=== PATIENT | male | born 1970 | race Asian ===

== ENCOUNTER 2024-03-28 13:47 | Observation (INO) | payer OTHER, SELFPAY ==
[2024-03-28] VITALS (44 sets, daily range): BP systolic 83–102; BP diastolic 51–68; PULSE 52–70; RESP 11–28; TEMP 36.9; O2SAT 84–100
--- NOTE | ~2024-03-28 | XR_ITS ---
EXAMINATION: XR chest 1V DATE: 03/28/2024 15:26 INDICATION: Hypoxia TECHNIQUE: frontal view of the chest was obtained. COMPARISON: None FINDINGS: Large-bore dual-lumen left internal jugular central venous catheter with distal tip in the right atri um. Small lung volumes. There are airspace opacities in the bilateral mid and lower lung zones. Small right and possible small left pleural effusions. No pneumothorax. Cardiomegaly. IMPRESSION: 1. Opacities in the bilateral mid and lower lung zones which could represent atelectasis, pneumonia, mild pulmonary edema or some combination thereof. 2. Small right pleural effusion and possible small left pleural effusion. 3. Cardiomegaly. Reviewed, dictated and finalized at location A. CH SALES MANAGER IMPRESSION: 1. Opacities in the bilateral mid and lower lung zones which could represent at electasis, pneumonia, mild pulmonary edema or some combination thereof. 2. Small right pleural effusion and possible small left pleural effusion. 3. Cardiomegaly.
--- NOTE | ~2024-03-28 | CT_ITS ---
CLINICAL INDICATION: Weakness and sepsis COMPARISON: None. TECHNIQUE: Multiple contiguous axial images of the chest, abdomen and pelvis were performed without t he administration of intravenous contrast The dose-length product (DLP) was 695.60 mGy-cm. Automated exposure control and iterative reconstruction technique were employed. FINDINGS/OBSERVATIONS: Chest: Bilateral pleural effusions (right greater than left) with adjacent compressive consolidation. The heart is enlarged. Tunneled left internal jugular hemodialysis catheter tip in the proximal right atrium. Liver: The liver demonstrates homogeneous attenuation and is markedly enlarged measuring 22 cm in longitudin al dimension. Gallbladder and biliary system: The gallbladder butt are densely calcified. Pancreas: Limited evaluation of the pancreas secondary to the lack of intravenous contrast. Spleen: The spleen demonstrates homogeneous attenuation and is not enlarged measuring 10 cm in longitudinal d imension. Kidneys: The bilateral kidneys are unremarkable, without hydronephrosis or renal calculi. Adrenal glands: Unremarkable. Gastrointestinal tract: Percutaneous gastrostomy within the stomach. Appendix: The appendix is not visualized. Vasculature: Densely calcified atherosclerotic disease, far advanced for patient of this age. Lymph nodes: Limited evaluation without intravenous contrast. Pelvic structures: The bladder is decompressed with significant wall thickening. The prostate gland is not enlarged. Body wall and musculoskeletal: [place] spine is identified, findings consistent with hyperparathyroidism. No acute compression fracture is present. Moderate anasarca and intra-abdominal ascites. IMPRESSION: Densely calcified atherosclerotic disease, far advanced for patient of this age. Findings within the spine suggesting hyperparathyroidism. Large bilateral pleural effusions (right greater than left) with adjacent consolidation. Dense wall calcification of the gallbladder. Moderate anasarca and intra-abdominal ascites Reviewed, dictated and finalized at location A. ARY OPERATOR IMPRESSION: Densely calcified atherosclerotic disease, far advanced for patient of this age . Findings within the spine suggesting hyperparathyroidism. Large bilateral pleural effusions (right greater than left) with adjacent conso lidation. Dense wall calcification of the gallbladder. Moderate anasarca and intra-abdominal ascites
[2024-03-28 15:09] LABS: Influenza A QL RT-PCR Negative (Negative); Influenza B QL RT-PCR Negative (Negative); RSV RNA, RT-PCR Negative (Negative); SARS-CoV-2 RNA PCR Negative (Negative)
[2024-03-28 15:21] LABS: Hematocrit 25.8 % (42.0-52.0); Hemoglobin 7.7 g/dL (14.0-18.0); Mean Corpuscular HGB Conc 29.8 g/dl (32-36); Mean Corpuscular Hemoglobin 33.6 pg (26-34); Mean Corpuscular Volume 112.7 fl (80-100); Mean Platelet Volume 12.4 fl (7.4-10.4); Platelet Count Result 33 k/mm3 (150-375); Red Blood Count 2.29 M/mm3 (4.6-6.20); Red Cell Distribution Width 17.7 % (11.5-14.5)
[2024-03-28 15:38] LABS: Alanine Aminotransferase 10 U/L (6-50); Albumin Level 2.5 g/dL (3.5-5.1); Alkaline Phosphatase 91 U/L (38-126); Anion Gap 8 mmol/L (4-12); Aspartate Amino Transferase 48 U/L (17-59); Blood Urea Nitrogen 36 mg/dL (9-20); Calcium 6.7 mg/dL (8.4-10.2); Carbon Dioxide 32 mmol/L (22-30); Chloride 99 mmol/L (98-107); Estimated Glomerular Filt Rate 10; Glucose 85 mg/dL (65-110); Potassium 2.7 mmol/L (3.4-5.0); Sodium 139 mmol/L (137-145)
[2024-03-28 15:45] LABS: Band Neutrophils Percent 14 % (0-6); Hypochromasia 3+; Lymphocytes Absolute Manual 2.28 K/mm3 (1.1-4.5); Lymphocytes Percent Manual 12 % (18-44); Monocytes Absolute Manual 0.38 K/mm3 (0.1-0.90); Monocytes Percent Manual 2 % (3-9); Myelocytes Percent 2 %; Neutrophils Absolute Manual 15.96 K/mm3 (1.3-6.7); Neutrophils Percent Manual 70 % (46-73); Platelet Estimate Decreased (Adequate); Polychromasia 1+; Smudge Cells PRESENT; Total Cells Counted 100
--- NOTE | 2024-03-28 15:45 | ECG_ITS ---
Test Date: 2024-03-28 16:28:23 Measurements Intervals [place] Rate: 62 P: 31 [place]: 138 QRS: 18 QRSD: 88 T: 12 QT: 412 QTc: 420 Interpretive Statements SINUS RHYTHM POSSIBLE ANTERIOR MYOCARDIAL INFARCTION , PROBABLY OLD [30 ms Q WAVE IN V3/V4, OR R < 0.2 mV IN V4] No previous ECG available for comparison Electronically Signed On 03-29-2024 11:52:06 SHIP'S OFFICER by Albertina Garcia
[2024-03-28 15:46] LABS: Macrocytosis 2+ (NORMAL); Ovalocytes 1+; Schistocytes None Seen; Target Cells 1+
[2024-03-28 16:01] LABS: Magnesium 1.7 mg/dL (1.6-2.3)
[2024-03-28 16:19] LABS: Procalcitonin 49.3 ng/mL
[2024-03-28 17:13] LABS: INR 1.4; Prothrombin Time 17.2 Seconds (11.1-14.7)
[2024-03-28 17:14] LABS: Partial Thromboplastin Time 43.8 Seconds (22.3-36.8)
--- NOTE | 2024-03-28 17:37 | ED.GENADULT ---
HPI - General Adult General Chief complaint: Weakness Stated complaint: HYPOXIC/LETHARGIC Time Seen by Provider: 03/28/24 15:38 History of Present Illness HPI narrative: Patient is a 53-year-old gentleman presents emergency department with chief complaint of generalized weakness and hypoxia. Patient has history of end-stage renal disease on dialysis and has home health care. The patient was previously admitted at both [facility] and also [facility] for a dialysis line infection. Back in January the patient today was hypoxic and was weaker than normal the patient was found to be saturating in the 80s normally goes to dialysis Monday Related Data Allergies Allergy/AdvReac Type Severity Reaction Status Date / Time No Known Allergies Allergy Mild Unverified 11/25/08 12:11 Review of Systems Review of Systems: A 10 system review of systems was completed on the patient and is negative except for what is stated in the HPI. Nursing and ancillary documentation was reviewed. Exam Narrative: GENERAL: Well-appearing, well-nourished, and in no acute distress. HEAD: Normocephalic, atraumatic. EYES: PERRLA and EOMI. ENT: Nares clear, no rhinorrhea or epistaxis. Mucous membranes moist. NECK: Supple. CHEST: Clear to auscultation. No respiratory distress. There is a dialysis access present in the left anterior chest HEART: Regular rate and rhythm. No murmur heard. Normal peripheral pulses. ABDOMEN: Soft, nontender, nondistended, normal active bowel sounds. There is a PEG tube present in the epigastrium EXTREMITIES: Normal range of motion. No edema. SKIN: Warm, dry, no rash. NEURO: No focal deficits. Alert and oriented x3. PSYCH: Normal mood and affect. Course Vital Signs Vital signs: Vital Signs Temperature 36.9 C 03/28/24 14:00 Pulse Rate 70 03/28/24 14:00 Respiratory Rate 16 03/28/24 14:00 Blood Pressure 101/55 L 03/28/24 14:00 Pulse Oximetry 84 L 03/28/24 14:00 Oxygen Delivery Room Air 03/28/24 14:00 Temperature 36.9 C 03/28/24 14:00 Pulse Rate 63 03/28/24 16:30 Respiratory Rate 16 03/28/24 16:30 Blood Pressure 99/58 L 03/28/24 16:30 Pulse Oximetry 96 03/28/24 16:30 Oxygen Delivery Room Air 03/28/24 14:00 Medical Decision Making [facility] Narrative Medical decision making narrative: Differential diagnosis includes pneumonia, sepsis, ACS Patient is not complaining of any chest pain at this time oxygen saturation has improved with nasal cannula oxygen Laboratory studies showed white count 9 0 the patient had a potassium of 2.7 Patient overall troponin 2.51 procalcitonin was elevated at 49.3 COVID flu and RSV were negative Chest x-ray showed 1. Opacities in the bilateral mid and lower lung zones which could represent atelectasis, pneumonia, mild pulmonary edema or some combination thereof. 2. Small right pleural effusion and possible small left pleural effusion. 3. Cardiomegaly. Blood cultures were obtained patient started on cefepime and vanc Patient's potassium was replaced Due to the elevated troponin the patient was started on a heparin drip since he has end-stage renal on dialysis Vital Signs Vital Signs: Vital Signs Temperature 36.9 C 03/28/24 14:00 Pulse Rate 70 03/28/24 14:00 Respiratory Rate 16 03/28/24 14:00 Blood Pressure 101/55 L 03/28/24 14:00 Pulse Oximetry 84 L 03/28/24 14:00 Oxygen Delivery Room Air 03/28/24 14:00 Temperature 36.9 C 03/28/24 14:00 Pulse Rate 63 03/28/24 16:30 Respiratory Rate 16 03/28/24 16:30 Blood Pressure 99/58 L 03/28/24 16:30 Pulse Oximetry 96 03/28/24 16:30 Oxygen Delivery Room Air 03/28/24 14:00 Lab Data 03/28/24 15:09 03/28/24 15:09 Labs: Lab Results 03/28/24 03/28/24 03/28/24 Range/Units 14:24 15:09 15:10 WBC 19.0 H (4.5-10.0) K/mm3 RBC 2.29 L (4.6-6.20) M/mm3 Hgb 7.7 L (14.0-18.0) g/dL Hct 25.8 L (42.0-52.0) % MCV 112.7 H (80-100) fl MCH 33.6 (26-34) pg MCHC 29.8 L (32-36) g/dl RDW 17.7 H (11.5-14.5) % Plt Count 33 L (150-375) k/mm3 MPV 12.4 H (7.4-10.4) fl Immature Gran % (Auto) Not Reportable Neut % (Auto) Not Reportable Lymph % (Auto) Not Reportable [place] % (Auto) Not Reportable Eos % (Auto) Not Reportable Baso % (Auto) Not Reportable Lymph # (Auto) Not Reportable [place] # (Auto) Not Reportable Eos # (Auto) Not Reportable Baso # (Auto) Not Reportable Abs Immat Gran (auto) Not Reportable Absolute Neuts (auto) Not Reportable Absolute Nucleated RBC Not Reportable Total Counted 100 Neutrophils % (Manual) 70 (46-73) % Band Neutrophils % 14 H (0-6) % Lymphocytes % (Manual) 12 L (18-44) % Monocytes % (Manual) 2 L (3-9) % Myelocytes % 2 % Nucleated RBC % Not Reportable Abs Neuts (Manual) 15.96 H (1.3-6.7) K/mm3 Abs Lymphs (Manual) 2.28 (1.1-4.5) K/mm3 Abs Monocytes (Manual) 0.38 (0.1-0.90) K/mm3 Smudge Cells Present Platelet Estimate Decreased (Adequate) % Immature Plt Fraction 11.0 (0.9-11.2) % Polychromasia 1+ Hypochromasia 3+ Macrocytosis 2+ (NORMAL) Target Cells 1+ Ovalocytes 1+ Schistocytes None seen PT 17.2 H (11.1-14.7) Seconds INR 1.4 APTT 43.8 H (22.3-36.8) Seconds Sodium 139 (137-145) mmol/L Potassium 2.7 L* (3.4-5.0) mmol/L Chloride 99 (98-107) mmol/L Carbon Dioxide 32 H (22-30) mmol/L Anion Gap 8 (4-12) mmol/L BUN 36 H (9-20) mg/dL Creatinine 6.19 H (0.7-1.3) mg/dL Estim Creat Clear Calc Not Reportable Estimated GFR 10 L (59 - ) Glucose 85 (65-110) mg/dL Lactic Acid 2.0 (0.7-2.0) mmol/L Calcium 6.7 L (8.4-10.2) mg/dL Magnesium 1.7 (1.6-2.3) mg/dL Total Bilirubin 1.0 (0.2-1.3) mg/dL AST 48 (17-59) U/L ALT 10 (6-50) U/L Alkaline Phosphatase 91 (38-126) U/L Troponin I 2.510 H* (0.000-0.034) ng/mL Total Protein 6.0 L (6.3-8.2) g/dL Albumin 2.5 L (3.5-5.1) g/dL Procalcitonin 49.3 ng/mL Nasal MRSA (PCR) Influenza A (RT-PCR) Negative (Negative) Influenza B (RT-PCR) Negative (Negative) RSV (RT-PCR) Negative (Negative) SARS-CoV-2 RNA (RT-PCR) Negative (Negative) 03/28/24 Range/Units 17:54 WBC (4.5-10.0) K/mm3 RBC (4.6-6.20) M/mm3 Hgb (14.0-18.0) g/dL Hct (42.0-52.0) % MCV (80-100) fl MCH (26-34) pg MCHC (32-36) g/dl RDW (11.5-14.5) % Plt Count (150-375) k/mm3 MPV (7.4-10.4) fl Immature Gran % (Auto) Neut % (Auto) Lymph % (Auto) [place] % (Auto) Eos % (Auto) Baso % (Auto) Lymph # (Auto) [place] # (Auto) Eos # (Auto) Baso # (Auto) Abs Immat Gran (auto) Absolute Neuts (auto) Absolute Nucleated RBC Total Counted Neutrophils % (Manual) (46-73) % Band Neutrophils % (0-6) % Lymphocytes % (Manual) (18-44) % Monocytes % (Manual) (3-9) % Myelocytes % % Nucleated RBC % Abs Neuts (Manual) (1.3-6.7) K/mm3 Abs Lymphs (Manual) (1.1-4.5) K/mm3 Abs Monocytes (Manual) (0.1-0.90) K/mm3 Smudge Cells Platelet Estimate (Adequate) % Immature Plt Fraction (0.9-11.2) % Polychromasia Hypochromasia Macrocytosis (NORMAL) Target Cells Ovalocytes Schistocytes PT (11.1-14.7) Seconds INR APTT (22.3-36.8) Seconds Sodium (137-145) mmol/L Potassium (3.4-5.0) mmol/L Chloride (98-107) mmol/L Carbon Dioxide (22-30) mmol/L Anion Gap (4-12) mmol/L BUN (9-20) mg/dL Creatinine (0.7-1.3) mg/dL Estim Creat Clear Calc Estimated GFR (59 - ) Glucose (65-110) mg/dL Lactic Acid (0.7-2.0) mmol/L Calcium (8.4-10.2) mg/dL Magnesium (1.6-2.3) mg/dL Total Bilirubin (0.2-1.3) mg/dL AST (17-59) U/L ALT (6-50) U/L Alkaline Phosphatase (38-126) U/L Troponin I Pending (0.000-0.034) ng/mL Total Protein (6.3-8.2) g/dL Albumin (3.5-5.1) g/dL Procalcitonin ng/mL Nasal MRSA (PCR) Pending Influenza A (RT-PCR) (Negative) Influenza B (RT-PCR) (Negative) RSV (RT-PCR) (Negative) SARS-CoV-2 RNA (RT-PCR) (Negative) Discharge Plan Discharge Clinical Impression: Pneumonia, Acute hypokalemia, Elevated troponin Patient Disposition: Still a Patient Condition: Stable Patient Language: Korean Follow-up/Referrals: PHYSICIAN,PAPER BAG MAKER [Primary Care Provider] -
[2024-03-28] MEDS: VANCOMYCIN 1,000 MG/NS 250 ML BAG 250 MG IVPB (17:54)
--- NOTE | 2024-03-28 17:57 | ECG_ITS ---
Test Date: 2024-03-28 19:55:26 Measurements Intervals [place] Rate: 56 P: 55 [place]: 136 QRS: 26 QRSD: 86 T: 11 QT: 458 QTc: 442 Interpretive Statements SINUS BRADYCARDIA LOW QRS VOLTAGE IN EXTREMITY LEADS [QRS DEFLECTION < 0.5 mV IN LIMB LEADS] ANTEROSEPTAL MYOCARDIAL INFARCTION , PROBABLY OLD [40+ ms Q WAVE IN V1-V4] MODERATE T-WAVE ABNORMALITY, CONSIDER INFERIOR ISCHEMIA [-0.1+ mV T WAVE IN II/aVF] Compared to ECG 03/28/2024 16:28:23 Low QRS voltage now present T-wave abnormality now present Possible ischemia now present Sinus rhythm no longer present Myocardial infarct finding still present Electronically Signed On 03-29-2024 11:53:24 INSTRUMENT REPAIR SUPERVISOR by Albertina Garcia
[2024-03-28] MEDS: POTASSIUM CHLORIDE 20 MEQ PACKET (FOR LIQUID) 40 MEQ PO (18:31)
[2024-03-28] MEDS: ASPIRIN 81 MG CHEWABLE TABLET 324 MG PO (18:32)
[2024-03-28] MEDS: HEPARIN SODIUM 5,000 UNITS/ML VIAL 3500 UNITS IV PUSH (18:44)
[2024-03-28] MEDS: HEPARIN SOD/D5W 100 UNITS/ML 25,000 UNITS/250 ML BAG 7 UNITS IV CONT (18:45)
[2024-03-28] MEDS: KCL 20 MEQ/SW 100 ML 100 ML 50 MEQ IVPB (18:49)
[2024-03-28 19:14] LABS: MRSA (PCR) NOT DETECTED (NOT DETECTE)
[2024-03-28] MEDS: SODIUM CHLORIDE 0.9% IV 1,000 ML 999 ML IV CONT ×2 (20:39→21:36)
[2024-03-28] MEDS: IPRATROPIUM 0.5 MG/ALBUTEROL SULFATE 2.5 MG AMPUL.NEB 3 ML INHALATION (21:46)
--- NOTE | 2024-03-28 22:40 | PC.NURSE ---
This RN spoke to EDP and made him aware of low BP. EDP ordered a 1L bolus of NS to be given.
[2024-03-28] MEDS: CEFEPIME 1 GM/NS 50 ML 1 GM/50 ML BAG IVPB (23:00)
[2024-03-28 23:43] LABS: Alveolar/Arterial O2 Gradient 93.3 mmHg; Base Excess ABG 2.4 mEq/l (+/-2.0); Fractional Inspired Oxygen 28 %; HCO3 ABG 26.2 mEq/l (22.0-26.0); Oxygen Content ABG 10.3 %vol (16.0-22.0); Oxygen Saturation ABG 93.2 % (95.0-100.0); Oxyhemoglobin 88.5 % THb (90.0-100.0); PCO2 ABG 37.3 mmHg (35.0-45.0); PO2 ABG 62.3 mmHg (80.0-100.0); PO2 FiO2 Ratio Arterial Blood 2.22 %; Total Hemoglobin 8.2 g/dL (12.0-18.0); pH ABG 7.465 (7.350-7.450)
[2024-03-28 23:44] LABS: Device NASAL CANNULA; Site Drawn RIGHT BRACHIAL
--- NOTE | 2024-03-28 23:46 | PCRCNOTE ---
This RT was unable to draw stat abg due to patient being in CT. Abg was drawn immediately when patient returned to room.
[2024-03-29] VITALS (17 sets, daily range): BP systolic 76–94; BP diastolic 49–58; PULSE 51–80; RESP 13–27; TEMP 36.9; O2SAT 91–100
--- NOTE | 2024-03-29 | PC.NURSE ---
EDP made aware of pt BP being 80's/50's. EDP ordered another bolus of 1L NS.
--- NOTE | 2024-03-29 00:10 | PM.IMHP ---
H&P: HPI History of Present Illness Date/Time: 03/29/24 00:10 Chief Complaint: Septic shock, pneumonia, ESRD on hemodialysis Narrative: This is a 53-year-old male patient with a history of end-stage renal disease on hemodialysis Monday was brought to the emergency department via EMS for severe weakness in shortness of breath. Today patient was hypoxic saturating in the 80s discovered by home health. Patient has a history of infected dialysis line previously approximately October through January of 2024. Patient is drowsy unable to answer many questions only states that he began to feel sick yesterday. Family not present at time of my evaluation. Patient appeared very ill pale, drowsy, with hypotension. I personally could not palpate a radial pulse but another provider could. Doppler was used and was able to find radial pulse. Patient had palpable femoral pulse. HPI and ROS unable to be further delineated. Review of Systems Review of Systems: ROS unobtainable: Yes unobtainable due to medical condition and unobtainable due to mental status PMFSH Comments History not available Meds Home Medications and Allergies Allergies Allergy/AdvReac Type Severity Reaction Status Date / Time No Known Allergies Allergy Mild Unverified 11/25/08 12:11 Vital Signs Vital Signs - 24 hr 03/28/24 14:00 03/28/24 14:49 03/28/24 15:30 Temperature 36.9 C Pulse Rate 70 70 64 Respiratory Rate 16 20 20 Blood Pressure 101/55 L 99/68 L 102/58 L Pulse Oximetry 84 L 94 96 Oxygen Delivery Room Air Oxygen Flow Rate 03/28/24 15:45 03/28/24 16:16 03/28/24 16:30 Temperature Pulse Rate 64 62 63 Respiratory Rate 20 20 16 Blood Pressure 101/56 L 98/55 L 99/58 L Pulse Oximetry 97 100 96 Oxygen Delivery Oxygen Flow Rate 03/28/24 17:15 03/28/24 17:30 03/28/24 18:34 Temperature Pulse Rate 60 59 L 56 L Respiratory Rate 17 18 15 Blood Pressure 93/56 L 95/56 L 96/51 L Pulse Oximetry 98 98 98 Oxygen Delivery Oxygen Flow Rate 03/28/24 19:03 03/28/24 19:20 03/28/24 19:30 Temperature Pulse Rate 57 L 57 L 56 L Respiratory Rate 25 H 17 17 Blood Pressure 88/56 L Pulse Oximetry 95 94 95 Oxygen Delivery Oxygen Flow Rate 03/28/24 19:31 03/28/24 19:45 03/28/24 19:46 Temperature Pulse Rate 62 57 L 56 L Respiratory Rate 17 20 17 Blood Pressure 88/57 L Pulse Oximetry 94 97 98 Oxygen Delivery Oxygen Flow Rate 03/28/24 20:03 03/28/24 20:17 03/28/24 20:27 Temperature Pulse Rate 56 L 56 L 55 L Respiratory Rate 20 23 H 20 Blood Pressure 83/57 L Pulse Oximetry 100 96 96 Oxygen Delivery Oxygen Flow Rate 03/28/24 20:33 03/28/24 20:45 03/28/24 20:46 Temperature Pulse Rate 56 L 55 L 55 L Respiratory Rate 22 H 28 H 23 H Blood Pressure 88/54 L Pulse Oximetry 96 97 97 Oxygen Delivery Oxygen Flow Rate 03/28/24 21:00 03/28/24 21:01 03/28/24 21:15 Temperature Pulse Rate 55 L 55 L 55 L Respiratory Rate 17 16 19 Blood Pressure 93/56 L 85/57 L Pulse Oximetry 97 97 97 Oxygen Delivery Oxygen Flow Rate 03/28/24 21:16 03/28/24 21:19 03/28/24 21:28 Temperature Pulse Rate 55 L 55 L 55 L Respiratory Rate 16 22 H 17 Blood Pressure 86/55 L 88/54 L Pulse Oximetry 98 97 99 Oxygen Delivery Oxygen Flow Rate 03/28/24 21:30 03/28/24 21:45 03/28/24 21:47 Temperature Pulse Rate 55 L 54 L 54 L Respiratory Rate 16 21 H 18 Blood Pressure 89/53 L 87/56 L Pulse Oximetry 98 99 Oxygen Delivery Oxygen Flow Rate 03/28/24 21:52 03/28/24 21:55 03/28/24 21:55 Temperature Pulse Rate 56 L 54 L Respiratory Rate 18 Blood Pressure 97/63 L Pulse Oximetry 98 100 Oxygen Delivery Nasal Cannula Oxygen Flow Rate 2 Exam Narrative: GENERAL: Very ill-appearing, ashen colored, drowsy HEAD: Normocephalic, atraumatic. ENT:? Mucous membranes tacky. CHEST: Significantly diminished, supplemental oxygen in place HEART: Bradycardic rate, regular rhythm, sinus bradycardia on bedside telemetry per my independent interpretation, palpable femoral pulse, dopplerable radial pulse ABDOMEN: Distended, firm, generalized tenderness EXTREMITIES: Significantly edematous x4 extremities, diminished pulses SKIN: Cool, dry, ashen color NEURO: Responds to voice, answers with 1 or 2 words and then falls back asleep PSYCH: Unable to assess due to illness severity H&P: Results Labs Labs: Short CBC 03/28/24 Range/Units 15:09 WBC 19.0 H (4.5-10.0) K/mm3 Hgb 7.7 L (14.0-18.0) g/dL Hct 25.8 L (42.0-52.0) % Plt Count 33 L (150-375) k/mm3 BMP 03/28/24 15:09 Sodium 139 Potassium 2.7 L* Chloride 99 Carbon Dioxide 32 H BUN 36 H Creatinine 6.19 H Glucose 85 Calcium 6.7 L Cardiac Enzymes 03/28/24 03/28/24 Range/Units 15:09 17:54 Troponin I 2.510 H* 2.760 H* (0.000-0.034) ng/mL Liver Function 03/28/24 Range/Units 15:09 Total Bilirubin 1.0 (0.2-1.3) mg/dL AST 48 (17-59) U/L ALT 10 (6-50) U/L Alkaline Phosphatase 91 (38-126) U/L Albumin 2.5 L (3.5-5.1) g/dL ABG ABG results: PH 7.465 pCO2 37.3 PO2 62.3 on 2 liters/minute HC03 26.2 Attestation: I personally reviewed and interpreted this ABG as follows: Interpretation: Mild metabolic alkalosis Pulse Oximetry SpO2 results: 95-100% on 2 liters/minute nasal cannula Attestation: I personally reviewed and interpreted this pulse oximetry as follows: Interpretation: Patient continues to require supplemental oxygen as he has borderline low PO2 on ABG while on 2 L ECG Attestation: I personally reviewed and interpreted this ECG as follows: ECG completion date: 03/28/24 ECG completion time: 16:28 Prior ECG tracings: not available for review Interpretation: Sinus rhythm rate of 62 [place] interval 138 QRS duration 88 QTC 420 QRS axis 18?, no STEMI, no prior EKG for comparison Imaging Chest x-ray: Radiologist's impression: EXAMINATION: XR chest 1V DATE: 03/28/2024 15:26 INDICATION: Hypoxia TECHNIQUE: frontal view of the chest was obtained. COMPARISON: None FINDINGS: Large-bore dual-lumen left internal jugular central venous catheter with distal tip in the right atrium. Small lung volumes. There are airspace opacities in the bilateral mid and lower lung zones. Small right and possible small left pleural effusions. No pneumothorax. Cardiomegaly. IMPRESSION: 1. Opacities in the bilateral mid and lower lung zones which could represent atelectasis, pneumonia, mild pulmonary edema or some combination thereof. 2. Small right pleural effusion and possible small left pleural effusion. 3. Cardiomegaly. Reviewed, dictated and finalized at location A. [facility] MANA[facility] CT scan - abdomen: Radiologist's impression: CLINICAL INDICATION: Weakness and sepsis COMPARISON: None. TECHNIQUE: Multiple contiguous axial images of the chest, abdomen and pelvis were performed without the administration of intravenous contrast The dose-length product (DLP) was 695.60 mGy-cm. Automated exposure control and iterative reconstruction technique were employed. FINDINGS/OBSERVATIONS: Chest: Bilateral pleural effusions (right greater than left) with adjacent compressive consolidation. The heart is enlarged. Tunneled left internal jugular hemodialysis catheter tip in the proximal right atrium. Liver: The liver demonstrates homogeneous attenuation and is markedly enlarged measuring 22 cm in longitudinal dimension. Gallbladder and biliary system: The gallbladder butt are densely calcified. Pancreas: Limited evaluation of the pancreas secondary to the lack of intravenous contrast. Spleen: The spleen demonstrates homogeneous attenuation and is not enlarged measuring 10 cm in longitudinal dimension. Kidneys: The bilateral kidneys are unremarkable, without hydronephrosis or renal calculi. Adrenal glands: Unremarkable. Gastrointestinal tract: Percutaneous gastrostomy within the stomach. Appendix: The appendix is not visualized. Vasculature: Densely calcified atherosclerotic disease, far advanced for patient of this age. Lymph nodes: Limited evaluation without intravenous contrast. Pelvic structures: The bladder is decompressed with significant wall thickening. The prostate gland is not enlarged. Body wall and musculoskeletal: [place] spine is identified, findings consistent with hyperparathyroidism. No acute compression fracture is present. Moderate anasarca and intra-abdominal ascites. IMPRESSION: Densely calcified atherosclerotic disease, far advanced for patient of this age. Findings within the spine suggesting hyperparathyroidism. Large bilateral pleural effusions (right greater than left) with adjacent consolidation. Dense wall calcification of the gallbladder. Moderate anasarca and intra-abdominal ascites Reviewed, dictated and finalized at location A. ESTING MANAGER Assessment and Plan Assessment and plan (1) Septic shock: Code(s): A41.9 - Sepsis, unspecified organism; R65.21 - Severe sepsis with septic shock Status: Acute Assessment and Plan: -pneumonia noted on chest x-ray -patient hypoxic, altered mental status, tachypneic, hypotensive post IV fluids -dopamine initiated to maintain blood pressure -transfer arranged to [facility] ICU in order to initiate CRRT for fluid overload status with hypotension (2) Elevated troponin: Code(s): R79.89 - Other specified abnormal findings of blood chemistry Status: Acute (3) Acute hypokalemia: Code(s): E87.6 - Hypokalemia Status: Acute Assessment and Plan: Patient received 20 mEq IV and 40 mEq oral replacement by ED provider (4) Pneumonia: Code(s): J18.9 - Pneumonia, unspecified organism Status: Acute Assessment and Plan: Patient received vancomycin and cefepime Resultant septic shock Transfer to facility ICU capable of CRRT (5) ESRD on hemodialysis: Code(s): N18.6 - End stage renal disease; Z99.2 - Dependence on renal dialysis Status: Acute Assessment and Plan: See above MWF schedule HD Prior infected dialysis catheter October-January hospitalization (6) Pleural effusion: Code(s): J90 - Pleural effusion, not elsewhere classified Status: Acute Assessment and Plan: After IV fluids given CT scan obtained showing very large bilateral pleural effusions with compressive consolidation, right larger than left (7) Ascites: Code(s): R18.8 - Other ascites Status: Acute Assessment and Plan: Abdomen was distended firm and tender to the touch CT scan obtained showing significant ascites, unknown if any history of cirrhosis (8) Thrombocytopenia: Code(s): D69.6 - Thrombocytopenia, unspecified Status: Acute Assessment and Plan: Patient was on heparin drip for elevated troponin, noted platelet count of 33 and stopped heparin Plan Patient is full code status, condition continued to worsen prior to arrival to the floor. Patient maintained in emergency department in transfer arranged to [facility] ICU. Quality VTE Prophylaxis VTE prophylaxis: pharmacologic ordered (Patient was on heparin drip for elevated troponin, thrombocytopenia noted and heparin stopped) Due to a high probability of clinically significant, life threatening deterioration, the patient required my highest level of preparedness to intervene emergently and I personally spent this critical care time directly and personally managing the patient. This critical care time included obtaining a history; examining the patient; pulse oximetry; ordering and review of studies; arranging urgent treatment with development of a management plan; evaluation of patient's response to treatment; frequent reassessment; and discussions with other providers. It was exclusive of separately billable procedures and treating other patients and teaching time. Please see Assessment and Plan section and the rest of the note for further information on patient assessment and treatment. Critical Care time: 90 minutes Hospitalist MIPS Advance Care Plan I have confirmed that the patient's Advanced Care Plan is present, code status is documented, or surrogate decision maker is listed in patient medical record.: Yes Medication Reconciliation The patient is not eligible for med reconciliation; the patient is in a emergent medical situation where delaying treatment would jeopardize the patients health.: Yes
--- NOTE | 2024-03-29 01:00 | PC.NURSE ---
Pt taken to CT scan per hospitalist order. This RN called Hospitalist when CT resulted.
[2024-03-29] MEDS: DOPamine 400 MG/D5W 250 ML 400 MG/250 ML BAG 20.89 MG IV CONT (01:22)
[2024-03-29 01:28] LABS: Hemoglobin 7.4 g/dL (14.0-18.0); Mean Corpuscular HGB Conc 29.6 g/dl (32-36); Mean Corpuscular Hemoglobin 33.5 pg (26-34); Mean Corpuscular Volume 113.1 fl (80-100); Mean Platelet Volume 13.9 fl (7.4-10.4); Red Blood Count 2.21 M/mm3 (4.6-6.20); Red Cell Distribution Width 17.3 % (11.5-14.5); White Blood Count 15.6 K/mm3 (4.5-10.0)
--- NOTE | 2024-03-29 01:30 | PC.NURSE ---
Hospitalist ordered to stop heparin drip and start dopamine
[2024-03-29 01:31] LABS: Platelet Count Result 29 k/mm3 (150-375)
[2024-03-29 01:37] LABS: INR 1.6
[2024-03-29 01:42] LABS: Magnesium 1.7 mg/dL (1.6-2.3)
[2024-03-29 01:44] LABS: Fibrinogen 166 mg/dl (215-510)
[2024-03-29 01:52] LABS: Partial Thromboplastin Time > 200.0 Seconds (22.3-36.8)
[2024-03-29 01:59] LABS: Albumin Level 2.2 g/dL (3.5-5.1); Anion Gap 6 mmol/L (4-12); Blood Urea Nitrogen 40 mg/dL (9-20); Calcium 5.9 mg/dL (8.4-10.2); Carbon Dioxide 29 mmol/L (22-30); Chloride 104 mmol/L (98-107); Estimated CRCL calculation 10 ml/min; Estimated Glomerular Filt Rate 10; Glucose 84 mg/dL (65-110); Phosphorus 3.6 mg/dL (2.5-4.5); Potassium 3.4 mmol/L (3.4-5.0); Sodium 139 mmol/L (137-145)
--- NOTE | 2024-03-29 02:08 | P.TS_ITS ---
Transfer Discharge Sum: Prov Provider Date of admission: 03/28/24 18:05 Primary care physician: TIP [facility]ERTER PHYSICIAN Admitting clinician: Ileana Maldonado MD Consults: 03/28/24 18:06 Consult to Physician Routine Comment: Consulting Provider: shoe polisher/ group to consult: Cardiology Reason for consultation: Elevated troponin Has provider been notified: No 03/28/24 18:07 Consult to Physician Routine Comment: Consulting Provider: shoe polisher/ group to consult: Nephrology Reason for consultation: ESRD patient Has provider been notified: No Discharging clinician: Darian José Anticipated date of transfer: 03/29/24 Receiving physician/facility: [facility] ICU, Dr. Thrasher, Order Picker/Assembler DS: Admitting Diagnosis Discharge Date 03/29/2024 Admitting Diagnosis Septic Shock, elevated troponin, acute hypokalemia, pneumonia, ESRD on hemodialysis, Pleural effusion, ascites, thrombocytopenia DS: Discharge Diagnosis Discharge Diagnosis (1) Septic shock: Code(s): A41.9 - Sepsis, unspecified organism; R65.21 - Severe sepsis with septic shock Status: Acute (2) Pleural effusion: Code(s): J90 - Pleural effusion, not elsewhere classified Status: Acute (3) Pneumonia: Code(s): J18.9 - Pneumonia, unspecified organism Status: Acute (4) Acute hypokalemia: Code(s): E87.6 - Hypokalemia Status: Acute (5) ESRD on hemodialysis: Code(s): N18.6 - End stage renal disease; Z99.2 - Dependence on renal dialysis Status: Acute (6) Ascites: Code(s): R18.8 - Other ascites Status: Acute (7) Thrombocytopenia: Code(s): D69.6 - Thrombocytopenia, unspecified Status: Acute (8) Elevated troponin: Code(s): R79.89 - Other specified abnormal findings of blood chemistry Status: Acute Plan Transfer to [facility] as patient's blood pressure will not tolerate standard hemodialysis and he will need CRRT due to fluid overload, sepsis and pre-existing ESRD. Transfer Discharge Sum: Med Medications Active and Home Medications: Active Medications Acetaminophen (Acetaminophen 325 Mg Tablet) 650 mg PO Q4H PRN PRN Reason: Mild Pain (1-3) or Fever Albuterol/Ipratropium (Ipratropium 0.5 Mg/Albuterol Sulfate 2.5 Mg Ampul.Neb 3 Ml) 3 ml INHALATION Q6HRT [facility] Last Admin: 03/28/24 21:46 Dose: 3 ml Aspirin (Aspirin 81 Mg Chewable Tablet) 81 mg PO DAILY@0800 [facility] Cefepime HCl (Maxipime 1 Gm/Ns 50 Ml) 1 gm in 50 mls @ 100 mls/hr IVPB Q24H SERENA Dopamine HCl/Dextrose (Dopamine 400 Mg/D5w 250 Ml) 400 mg in 250 mls @ 26.109 mls/hr IV CONT .Q9H35M [facility]; Protocol Last Titration: 03/29/24 01:35 Dose: 12.5 mcg/kg/min, 26.11 mls/hr Vancomycin HCl (Vancomycin For Hemodialysis) 1 each IVPB PRN PRN PRN Reason: Vancomycin Protocol Transfer Discharge Sum: Hosp Hospital Course Hospital course: Domingo Guy is a 53 year old male accepted for admission by Hospitalist Service but prior to getting to the floor condition worsened. Patient was kept in ER though managed by Hospitalist service. He was found to be hypotensive despite receiving 2 liters IV fluids by prior ER provider. Radial pulse not palpable. Abdomen found firm and distended. CT scan chest/abd/pelvis obtained without contrast with findings of large pleural effusions bilaterally-worse on right. Additionally, ascites and anasarca noted of abdomen. BP continued to drop into 70s systolic. Dopamine infusion started peripherally as patient also bradycardic. Transfer arranged to [facility] ICU in order to be placed on CRRT for fluid overload and hypotension. Dr. Thrasher, Order Picker/Assembler, accepted care. Patient transferred by [facility]. Time Spent with Patient Time attestation: Total time spent providing and/or coordinating transfer services: 60 minutes Total time spent: Greater than 30 minutes Exam Narrative: GENERAL: Very ill-appearing, ashen colored, drowsy HEAD: Normocephalic, atraumatic. ENT:? Mucous membranes tacky. CHEST: Significantly diminished, supplemental oxygen in place HEART: Bradycardic rate, regular rhythm, sinus bradycardia on bedside telemetry per my independent interpretation, palpable femoral pulse, dopplerable radial pulse ABDOMEN: Distended, firm, generalized tenderness EXTREMITIES: Significantly edematous x4 extremities, diminished pulses SKIN: Cool, dry, ashen color NEURO: Responds to voice, answers with 1 or 2 words and then falls back asleep PSYCH: Unable to assess due to illness severity DS: Data Data Completed and Pending Labs on day of discharge: Labs from last 24 hours 03/29/24 03/28/24 03/28/24 01:19 23:32 17:54 WBC 15.6 H RBC 2.21 L Hgb 7.4 L Hct 25.0 L MCV 113.1 H MCH 33.5 MCHC 29.6 L RDW 17.3 H Plt Count 29 L MPV 13.9 H Immature Gran % (Auto) Neut % (Auto) Lymph % (Auto) Levy % (Auto) Eos % (Auto) Baso % (Auto) Lymph # (Auto) Levy # (Auto) Eos # (Auto) Baso # (Auto) Abs Immat Gran (auto) Absolute Neuts (auto) Absolute Nucleated RBC Total Counted Neutrophils % (Manual) Band Neutrophils % Lymphocytes % (Manual) Monocytes % (Manual) Myelocytes % Nucleated RBC % Abs Neuts (Manual) Abs Lymphs (Manual) Abs Monocytes (Manual) Smudge Cells Platelet Estimate % Immature Plt Fraction 14.0 H Polychromasia Hypochromasia Macrocytosis Target Cells Ovalocytes Schistocytes PT 19.0 H INR 1.6 APTT > 200.0 H* Fibrinogen 166 L D-Dimer 3.90 H Puncture Site Right brachial ABG pH 7.465 H ABG pCO2 37.3 ABG pO2 62.3 L ABG PO2/FiO2 Ratio 2.22 ABG HCO3 26.2 H ABG O2 Saturation 93.2 L ABG O2 Content 10.3 L ABG Base Excess 2.4 A-a Gradient 93.3 Oxyhemoglobin 88.5 L Total Hemoglobin 8.2 L O2 Delivery Device Nasal cannula O2 Liters/Min 2.0 FiO2 28 Sodium 139 Potassium 3.4 Chloride 104 Carbon Dioxide 29 Anion Gap 6 BUN 40 H Creatinine 6.13 H Estim Creat Clear Calc 10 Estimated GFR 10 L Glucose 84 Lactic Acid Calcium 5.9 L* Phosphorus 3.6 Magnesium 1.7 Total Bilirubin AST ALT Alkaline Phosphatase Troponin I 2.080 H* D 2.760 H* Total Protein Albumin 2.2 L Procalcitonin Nasal MRSA (PCR) Not detected Influenza A (RT-PCR) Influenza B (RT-PCR) RSV (RT-PCR) SARS-CoV-2 RNA (RT-PCR) 03/28/24 03/28/24 03/28/24 15:10 15:09 14:24 WBC 19.0 H RBC 2.29 L Hgb 7.7 L Hct 25.8 L MCV 112.7 H MCH 33.6 MCHC 29.8 L RDW 17.7 H Plt Count 33 L MPV 12.4 H Immature Gran % (Auto) Not Reportable Neut % (Auto) Not Reportable Lymph % (Auto) Not Reportable Levy % (Auto) Not Reportable Eos % (Auto) Not Reportable Baso % (Auto) Not Reportable Lymph # (Auto) Not Reportable Levy # (Auto) Not Reportable Eos # (Auto) Not Reportable Baso # (Auto) Not Reportable Abs Immat Gran (auto) Not Reportable Absolute Neuts (auto) Not Reportable Absolute Nucleated RBC Not Reportable Total Counted 100 Neutrophils % (Manual) 70 Band Neutrophils % 14 H Lymphocytes % (Manual) 12 L Monocytes % (Manual) 2 L Myelocytes % 2 Nucleated RBC % Not Reportable Abs Neuts (Manual) 15.96 H Abs Lymphs (Manual) 2.28 Abs Monocytes (Manual) 0.38 Smudge Cells Present Platelet Estimate Decreased % Immature Plt Fraction 11.0 Polychromasia 1+ Hypochromasia 3+ Macrocytosis 2+ Target Cells 1+ Ovalocytes 1+ Schistocytes None seen PT 17.2 H INR 1.4 APTT 43.8 H Fibrinogen D-Dimer Puncture Site ABG pH ABG pCO2 ABG pO2 ABG PO2/FiO2 Ratio ABG HCO3 ABG O2 Saturation ABG O2 Content ABG Base Excess A-a Gradient Oxyhemoglobin Total Hemoglobin O2 Delivery Device O2 Liters/Min FiO2 Sodium 139 Potassium 2.7 L* Chloride 99 Carbon Dioxide 32 H Anion Gap 8 BUN 36 H Creatinine 6.19 H Estim Creat Clear Calc Not Reportable Estimated GFR 10 L Glucose 85 Lactic Acid 2.0 Calcium 6.7 L Phosphorus Magnesium 1.7 Total Bilirubin 1.0 AST 48 ALT 10 Alkaline Phosphatase 91 Troponin I 2.510 H* Total Protein 6.0 L Albumin 2.5 L Procalcitonin 49.3 Nasal MRSA (PCR) Influenza A (RT-PCR) Negative Influenza B (RT-PCR) Negative RSV (RT-PCR) Negative SARS-CoV-2 RNA (RT-PCR) Negative Additional Comments Additional comments: See H&P completed same day
--- NOTE | 2024-03-29 02:12 | PC.NURSE ---
This RN spoke with Anisha from [facility] transfer. Pt was accepted by Dr. Thrasher. pt waiting on transport
--- NOTE | 2024-03-29 02:13 | PC.NURSE ---
This RN spoke with Barbara WELCH at [facility]. Report given to Barbara WELCH and given ETA
--- NOTE | 2024-03-29 02:20 | PC.NURSE ---
This RN tried to call pt Next of Kin and update about POC and pt transport. No answer or option to leave a voicemail. This RN gave Next of Kin phone number to transport team for [facility]
--- OUTSIDE RECORDS SUMMARY | 2024-03-29 06:07 | XMS_ITS ---
Author Name Rogelio, Clinic Address [address] [place] [address] Phone [phone] Organization [facility] e, NA DOCUMENT DISCLAIMER Multiple document versions may exist, please be sure you review the latest version. The information in the [facility] Continuity of Care Document represents a summary of certain health and medical information. It may not contain the complete medical history for the patient and should be independently verified. The represented time in the document is Eastern Time. PROBLEMS Problem Code Status Onset Date Unspecified protein-calorie malnutrition E46 Active February 26, 2024 Sepsis, unspecified organism A41.9 Active August 28, 2023 Thrombocytopenia, unspecified D69.6 Active April 12, 2023 Other cholelithiasis without obstruction K80.80 Active April 12, 2023 Acute respiratory failure, u nspecified whether with hypoxia or hypercapnia J96.00 Active April 12, 2023 Hypertension secondary to other renal disorders I15.1 Active January 06, 2023 Iron deficiency anemia, unspecified D50.9 Activ e December 20, 2022 Encounter for immunization Z23 Active O ctober 2022 Other specified hypoparathyroidism E20.89 Active December 04, 2022 Mild protein-calorie malnutrition E44.1 Active December 02, 2022 Pruritus, unspecified L29.9 Active 2022 Nausea R11.0 Active November 18 023 Pain, unspecified R52 Active November 18, 2022 Fever, unspecified R50.9 Active November 18, 2022 supervisor intermediates (current) use of antithrombotics/antiplatelets Z79.02 Active November 18, 2022 Chronic systolic (congestive) heart failure I50.22 Active November 18, 2022 supervisor intermediates (current) use of insulin Z79.4 Active November 18, 2022 supervisor intermediates (current) use of aspirin Z79.82 Active November 18, 2022 End stage renal disease N18.6 Active Nov Dyspnea, unspecified R06.00 Active Septemb er 2022 Coagulation defect, unspecified D68.9 Active November 14, 2022 Encounter for screening for respiratory tuberculosis Z 11.1 Active November 14, 2022 Secondary hyperparathyroidism of renal origin N25.81 Active November 10, 2022 Renal osteodystrophy N25.0 Active Septemb er 2022 Hyperlipidemia, unspecified E78.5 Active November 10, 2022 Anemia in chronic kidney disease D63.1 Active November 10, 2022 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, or end stage renal disease I13.2 Active Nov emb2022 Type 2 diabetes mellitus wit h diabetic chronic kidney disease E11.22 Active November 10, 2022 Dependence on renal dialysis Z99.2 Active November 10, 2022 ALLERGIES AND ADVERSE REACTIONS No Known Allergies SOCIAL HISTORY Tobacco Use Status Tobacco Type Unknown if ever consumed tobacco - Caregiver Characteristics No Information Available Characteristics of Home environment No Information Available Gender and Sex Information Gender Identity Sexual Orientation No Information Available No Information Available MEDICATIONS Prescribed Medications for Dialysis Treatments Medication Instructions Dosage Route Start Date End Date Stat us Heparin Sodium (Porcine) 1,000 Units/mL Catheter Lock Arterial Every Treatment 2000 units Arterial Red Port November 15, 2023 November 13, 2024 Active Heparin Sodium (Porcine) 1,000 Units/mL Catheter Lock Venous Every Treatment 2100 units Venous Blue Port November 22, 2023 November 20, 2024 Active Iron Sucrose (Venofer) Every Treatment 100 mg Intravenous - push February 12, 2024 March 04, 2024 Active Iron Sucrose (Venofer) During Dialysis, 1X Week 50 mg Intravenous - push March 11, 2024 March 10, 2025 Active Mircera Every 2 weeks 225 mcg Intravenous - push March 25, 2024 March 24, 2025 Active Doxercalciferol (Hectorol) During Dialysis, Every Treatment 1 mcg Intravenous - push February 23, 2024 February 21, 2025 Discontinued Mircera Once 75 mcg Intravenous - push March 15, 2024 Discontinued Mircera Every 2 weeks 150 mcg Intravenous - push February 12, 2024 February 10, 2025 Discontinued Home Medications Medication Instructions Dosage Route Start Date End Date Status atorvastatin 40 mg Take by mouth every night at bedtime 1 tablet ORAL April 07, 2023 Active clonidine HCl 0.2 mg Take by mouth twice a day 1 tablet ORAL April 26, 2023 Active clopidogrel 75 mg Take by mouth once a day 1 tablet ORAL April 07, 2023 Active Entresto 49-51 mg Take by mouth every night at bedtime 1 tablet ORAL April 13, 2023 Active ergocalciferol (vitamin D2) 1,250 mcg (50,000 unit) Take by mouth once a week as directed 1 capsule ORAL October 18, 2023 Active folic acid 1 mg Take by mouth once a day 1 mg ORAL April 07, 2023 Active hydralazine 50 mg Take by mouth three times a day 1 tablet ORAL April 26, 2023 Active Lantus U-100 Insulin 100 unit/mL Inject subcutaneously once a day 15 SUBCUTANEOUS April 07, 2023 Active Novolog FlexPen U-100 Insulin 100 unit/mL (3 mL) Inject subcutaneously three times a day with meals 5 unit SUBCUTANEOUS April 07, 2023 Active VITAL SIGNS Post-Treatment Vital Signs Vital Sign Value Date / Time Blood Pressure-sitting 139/71 mmHg March 072024 12:22 PM Blood Pressure-standing 136/68 mmHg March 27, 2024 12:22 PM Heart Rate 65 beats per minute March 27, 2024 12:22 PM Respiratory Rate 18 breaths per minute March 072024 12:22 PM Temperature 97.0 deg. F March 27, 2024 12:22 PM Weight Vital Sign Value Date / Time Estimated Dry Weight 57 kg March 20, 2024 11:59 PM Pre-Dialysis 62.80 kg March 27, 2024 12:22 PM Post-Dialysis 59.80 kg March 27, 2024 12:22 PM Other Other Value Date / Time Height 157 cm November 14 12:00 AM Body Mass Index 19.07 kg/m2 February 28 03:27 PM HEALTH CONCERNS Tuberculosis Testing TST Date Administered TST Date Read TST Result 11/18/2022 11/21/2022 Negative (<5) mm LAB RESULTS Hematology Result Type Result Value Relevant Referen ce Range Interpretation Date ESR 78 mm/hr 0 - 20 mm/hr High August 15 4 ESR 84 mm/hr 0 - 20 mm/hr High August 22 4 Folate, Serum 5.7 ng/mL No Reference Ran ge Provided - September 20, 2023 Ferritin 741 ng/mL 22 - 322 ng/mL High February Transferrin Sat. (Calc) 27 % 20 - 55 % - February 04 4 Iron 47 mcg/dL 45 - 160 mcg/dL - February 05, 2024 UIBC/TIBC 128 mcg/dL 155 - 355 mcg/dL Low February 05, 2024 TIBC (Calc) 175 mcg/dL 185 - 515 mcg/dL Low Decembe r 2023 Platelets 72 1000/mcL 130 - 400 1000/mcL Low Decem she 2023 Reticulocyte 2.65 % 0.80 - 2.10 % High February 05, 2024 MCHC 30.6 g/dL 30.0 - 36.0 g/dL - February 05, 2024 RDW 18.2 % 11.5 - 14.5 % High February Hemoglobin x 3 28.8 % 42.0 - 54.0 % Low Decembe r 2023 MCH 31.5 pg 27.0 - 31.0 pg High February Basophils 2.1 % 0.0 - 1.5 % High February 05, 2024 THEODORA 2.9 % 0.0 - 4.0 % - February 05, 2024 WBC (No Diff) 8.08 1000/mcL 4.80 - 10.80 1000/mcL - February 05, 2024 Neutrophils 48.8 % 40.0 - 75.0 % - February Lymphocytes 37.0 % 19.0 - 48.0 % - February Monocytes 5.7 % 3.0 - 10.0 % - February 05, 2024 Eosinophil 3.5 % 0.0 - 7.0 % - February 05, 2024 Hemoglobin x 3 26.7 % 42.0 - 54.0 % Low Decee r 2023 Hemoglobin x 3 21.6 % 42.0 - 54.0 % Low Decee r 2023 UIBC/TIBC 123 mcg/dL 155 - 355 mcg/dL Low February 21, 2024 Iron 56 mcg/dL 45 - 160 mcg/dL - February 21, 2024 Transferrin Sat. (Calc) 31 % 20 - 55 % - February 20 TIBC (Calc) 179 mcg/dL 185 - 515 mcg/dL Low Decee r 2023 Neutrophils 52.4 % 40.0 - 75.0 % - February 032023 Lymphocytes 31.2 % 19.0 - 48.0 % - February 032023 Basophils 0.8 % 0.0 - 1.5 % - February 21, 2024 Monocytes 6.9 % 3.0 - 10.0 % - February 21, 2024 Eosinophil 6.6 % 0.0 - 7.0 % - February 21, 2024 THEODORA 2.1 % 0.0 - 4.0 % - February 21, 2024 WBC (No Diff) 9.20 1000/mcL 4.80 - 10.80 1000/mcL - February 21, 2024 MCHC 31.9 g/dL 30.0 - 36.0 g/dL - February 21, 2024 RDW 17.8 % 11.5 - 14.5 % High February MCH 32.2 pg 27.0 - 31.0 pg High February 032023 Hemoglobin x 3 21.9 % 42.0 - 54.0 % Low Decembe r 2023 Platelets 66 1000/mcL 130 - 400 1000/mcL Low Decem she 2023 Reticulocyte 4.56 % 0.80 - 2.10 % High February 21, 2024 Ferritin 1114 ng/mL 22 - 322 ng/mL High February 032023 HGB 6.8 g/dL 14.0 - 18.0 g/dL Critically low Dece mber 2023 Hemoglobin x 3 20.4 % 42.0 - 54.0 % Low Decembe r 2023 Hemoglobin x 3 22.2 % 42.0 - 54.0 % Low March 07, 2024 HGB 7.4 g/dL 14.0 - 18.0 g/dL Low March 07, 2024 HGB 7.5 g/dL 14.0 - 18.0 g/dL Low March 13, 2024 Hemoglobin x 3 22.5 % 42.0 - 54.0 % Low March 13, 2024 Ferritin 1175 ng/mL 22 - 322 ng/mL High March TIBC (Calc) 205 mcg/dL 185 - 515 mcg/dL - March 20, 2024 Transferrin Sat. (Calc) 50 % 20 - 55 % - March 20, 2024 Iron 102 mcg/dL 45 - 160 mcg/dL - March 062024 UIBC/TIBC 103 mcg/dL 155 - 355 mcg/dL Low March 20, 2024 Neutrophils 44.6 % 40.0 - 75.0 % - March Basophils 0.5 % 0.0 - 1.5 % - March 20 025 Eosinophil 2.7 % 0.0 - 7.0 % - March 20 025 Monocytes 5.8 % 3.0 - 10.0 % - March 20, 2024 Lymphocytes 44.5 % 19.0 - 48.0 % - March WBC (No Diff) 6.95 1000/mcL 4.80 - 10.80 1000/mcL - March 20, 2024 THEODORA 1.8 % 0.0 - 4.0 % - March 20 025 RBC 2.38 mill/mcL 4.70 - 6.10 mill/mcL Low March 20, 2024 MCHC 31.6 g/dL 30.0 - 36.0 g/dL - March 20, 2024 MCH 33.6 pg 27.0 - 31.0 pg High March HCT 25.3 % 42.0 - 52.0 % Low March 20, 2024 Platelets 41 1000/mcL 130 - 400 1000/mcL Low 2024 Hemoglobin x 3 24.0 % 42.0 - 54.0 % Low March 20, 2024 HGB 8.0 g/dL 14.0 - 18.0 g/dL Low March 20, 2024 RDW 17.7 % 11.5 - 14.5 % High March 20, 2024 Reticulocyte 8.09 % 0.80 - 2.10 % High March 062024 HGB 9.3 g/dL 14.0 - 18.0 g/dL Low March 27, 2024 Hemoglobin x 3 27.9 % 42.0 - 54.0 % Low March 27, 2024 Metabolic/Renal Result Type Result Value Relevant Referen ce Range Interpretation Date Vitamin B12 682 pg/mL 211 - 911 pg/mL - September 20, 2023 BUN 37 mg/dL 6 - 19 mg/dL High February 05, 2024 Potassium 5.2 mEq/L 3.5 - 5.1 mEq/L High February 05, 2024 Chloride 95 mEq/L 96 - 108 mEq/L Low February Bicarbonate 22 mEq/L 22 - 29 mEq/L - February Creatinine, Serum 7.23 mg/dL 0.60 - 1.30 mg/dL High February 05, 2024 BUN/Creat Ratio 5.1 10.0 - 20.0 Low February 05, 2024 Sodium 129 mEq/L 136 - 145 mEq/L Low February 05, 2024 Hemoglobin A1c 4.7 % 4.8 - 5.9 % Low February 05, 2024 BUN 36 mg/dL 6 - 19 mg/dL High February 07, 2024 URR, Calc 72 % 65 - 80 % - February 06, 024 BUN, Post 10 mg/dL 6 - 19 mg/dL - February 07, 2024 Bicarbonate 24 mEq/L 22 - 29 mEq/L - February 032023 Chloride 100 mEq/L 96 - 108 mEq/L - February 032023 Creatinine, Serum 7.15 mg/dL 0.60 - 1.30 mg/dL High February 21, 2024 Potassium 4.2 mEq/L 3.5 - 5.1 mEq/L - February 21, 2024 Sodium 135 mEq/L 136 - 145 mEq/L Low February 21, 2024 BUN 23 mg/dL 6 - 19 mg/dL High March 13, 2024 BUN, Post < 2 mg/dL 6 - 19 mg/dL Low March 18, 2024 BUN 37 mg/dL 6 - 19 mg/dL High March 18, 2024 Chloride 102 mEq/L 96 - 108 mEq/L - March Bicarbonate 27 mEq/L 22 - 29 mEq/L - March Sodium 143 mEq/L 136 - 145 mEq/L - March 062024 Potassium 3.1 mEq/L 3.5 - 5.1 mEq/L Low March 062024 Creatinine, Serum 6.65 mg/dL 0.60 - 1.30 mg/dL High March 20, 2024 URR, Calc 61 % 65 - 80 % Low March 25 25 BUN, Post 16 mg/dL 6 - 19 mg/dL - March 25, 2024 BUN 41 mg/dL 6 - 19 mg/dL High March 25, 2024 HD Adequacy Result Type Result Value Relevant Referen ce Range Interpretation Date spKt/V (Daugirdas II) 1.50 No Reference Range Provided - February 07, 2024 eKt/V ([place]) 1.28 No Reference Range Provided - February 07, 2024 wstdKt/V 2.1 No Reference Ran ge Provided - March 25, 2024 eKt/V ([place]) 0.97 No Reference Range Provided - March 25, 2024 spKt/V (Daugirdas II) 1.13 No Reference Range Provided - March 25, 2024 spKt/V Gotch 1.15 No Reference Ran ge Provided - March 25, 2024 Krt/V 0.00 No Reference Ran ge Provided - March 25, 2024 wstdKt/V, residual 0.0 No Reference Range Provided - March 25, 2024 wstdKt/V without residual 2.1 No Reference Range Provided - March 25, 2024 Bone/Mineral Result Type Result Value Relevant Referen ce Range Interpretation Date Magnesium 2.1 mg/dL 1.6 - 2.6 mg/dL - June 21, 2023 Magnesium 2.3 mg/dL 1.6 - 2.6 mg/dL - September 20, 2023 Vitamin D 25 Hydroxy 20.4 ng/mL 30.0 - 100.0 ng/mL Low September 20, 2023 Calcium, Total 7.3 mg/dL 8.4 - 10.2 mg/dL Low Dece mb2023 Phosphorus 4.1 mg/dL 2.6 - 4.5 mg/dL - February 05, 2024 Ca x P Product 30 0 - February 0 2023 Alkaline Phosphatase 142 U/L 40 - 129 U/L High [place] cember 2023 Magnesium 1.7 mg/dL 1.6 - 2.6 mg/dL - February 05, 2024 Corrected Ca x P Product 34 0 - February 04 4 PTH-Intact, Plasma 143 pg/mL 16 - 80 pg/mL High Feb Ca x P Product 17 0 - February 032023 Phosphorus 2.2 mg/dL 2.6 - 4.5 mg/dL Low February 21, 2024 Calcium, Total 7.9 mg/dL 8.4 - 10.2 mg/dL Low Dece mb2023 Corrected Ca x P Product 20 0 - February 20 4 PTH-Intact, Plasma 62 pg/mL 16 - 80 pg/mL - Feb PTH-Intact, Plasma 135 pg/mL 16 - 80 pg/mL High Martir uary 2024 Magnesium 1.9 mg/dL 1.6 - 2.6 mg/dL - Pamella 1 5, 2025 Corrected Ca x P Product 27 0 - 54 - March 20, 2024 Ca x P Product 23 0 - 54 - March Alkaline Phosphatase 100 U/L 40 - 129 U/L - [facility] 2024 Calcium, Total 7.0 mg/dL 8.4 - 10.2 mg/dL Low 2024 Phosphorus 3.3 mg/dL 2.6 - 4.5 mg/dL - March 062024 Liver/Nutrition Result Type Result Value Relevant Referen ce Range Interpretation Date Globulin (Calc) 4.8 g/dL 2.0 - 4.0 g/dL High 2023 A/G Ratio 0.6 1.0 - 2.0 Low February 04 024 Total Protein 7.6 g/dL 6.0 - 8.5 g/dL - 2023 Albumin (BCG) 2.8 g/dL 3.5 - 5.2 g/dL Low 2023 Glucose 159 mg/dL 70 - 100 mg/dL High February Total Protein 7.1 g/dL 6.0 - 8.5 g/dL - 2023 Albumin (BCG) 2.7 g/dL 3.5 - 5.2 g/dL Low 2023 A/G Ratio 0.6 1.0 - 2.0 Low February 20 024 Globulin (Calc) 4.4 g/dL 2.0 - 4.0 g/dL High 2023 A/G Ratio 0.7 1.0 - 2.0 Low March 20 25 Globulin (Calc) 3.9 g/dL 2.0 - 4.0 g/dL - 2024 Total Protein 6.5 g/dL 6.0 - 8.5 g/dL - March 20, 2024 Albumin (BCG) 2.6 g/dL 3.5 - 5.2 g/dL Low March 20, 2024 eNPCR 0.57 No Reference Ran ge Provided - March 25, 2024 Immunochemistry Result Type Result Value Relevant Reference Range Interpre tation Date HCV s/co ratio > 11.00 0.00 - 0.79 High September 20, 2023 Trace Elements Result Type Result Value Relevant Reference Range Interpre tation Date Aluminum < 5 mcg/L 0 - 10 mcg/L - September 19 Aluminum 9 mcg/L 0 - 10 mcg/L - February 05, 2024 Aluminum 5 mcg/L 0 - 10 mcg/L - March 20, 2024 Infectious Diseases Result Type Result Value Relevant Referen ce Range Interpretation Date HCV Ab (anti-HCV) Reactive No Reference R shannon Provided Abnormal September 20, 2023 Hep B Surface Ag (HBsAg) Negative No Reference Range Provided - September 20, 2023 Hep B Surface Ab (anti-HBs) > 1000 mIU/mL No Reference Range Provided - September 20, 2023 DIALYSIS PRESCRIPTION Conventional Hemodialysis Data Element Value Order Date/Time March 20, 2024 Frequency 3X Week Treatment Days MonWedFri Dialyzer [id number] Optiflux Treatment Time (Total Minutes) 210 min Blood Flow Rate (mL/min) 400 mL/min Dialysate Flow Rate Manual 800 Estimated Dry Weight 57 kg Dialysate Concentrate 2.0 K, 3.0 Ca, 1.0 Mg, 100 Dextrose (G2301) Sodium (mEq/L) 138 mEq/L Bicarb Machine Setting (mEq/L) 38 mEq/L Dialysis Access Hemodialysis-CV Cath eter-Tunneled, Chest, Left Jugular Access Placed on August 07, 2023 IMMUNIZATIONS Vaccine Date Dose Route Status PREVNAR April 17, 2023 0.5 mL Intramuscular Comp leted HEPLISAV-B, Series 1 of 4 December 21, 2022 20.0 mcg Intr amuscular Completed Flu Vaccine - Flublok Quadrivalent December 14, 2022 0.5 mL Intramuscular Completed TRANSPLANT WAITLIST STATUS No Information on Transplant Waitlist Status ADVANCE DIRECTIVES Directive Description Ordered By Effective Date Resuscitation status Full Code Marco A Pham Nov [id number] DIALYSIS TREATMENTS Conventional Hemodialysis Date Pre-Treatment Vitals Post-Treatment Hallie ls Duration (hr) BFR (mL/min) Dialysate Dialyzer Dialysis Access Meds Admin 2024 Weight 57.70 kg Weight 61.50 kg 03:30:00 410 2.0 K, 3.0 Ca, 1.0 Mg, 100 Dextrose (G2301) 180nre Optifl ux Blood Pressure-sitting 118/65 mmHg Blood Pressure-sit ting 128/61 mmHg Heart Rate 66 beats per minute Blood Pressure-standi ng 114/61 mmHg Respiratory Rate 18 breaths per minute Heart Rate 62 beats per minute Temperature 98.6 deg. F Respiratory Rate 18 breaths per minute - - Temperature 97.0 deg. F March 25, 2024 Weight 64.10 kg Weight 61.50 kg 03:30:00 410 2.0 K, 3.0 Ca, 1.0 Mg, 100 Dextrose (G2301) 180nre Optiflux Hemodialysis-CV Catheter-Tunneled, Chest, Left Jugular Access Placed on August 07, 2023 Heparin Sodium (Porcine) 1,000 Units/mL Catheter Lock Arterial; 2000units,Arterial Red Port Heparin Sodium (Porcine) 1,000 Units/mL Catheter Lock Venous; 2100units,Venous Blue Port Iron Sucrose (Venofer); 50mg,Intravenous - push Mircera; 225mcg,Intravenous - push Blood Pressure-sitting 126/76 mmHg Blood Pressure-sit ting 146/71 mmHg Heart Rate 62 beats per minute Blood Pressure-standi ng 144/73 mmHg Respiratory Rate 18 breaths per minute Heart Rate 66 beats per minute Temperature 96.2 deg. F Respiratory Rate 18 breaths per minute - - Temperature 97.0 deg. F March 27, 2024 Weight 62.80 kg Weight 59.80 kg 03:27:00 400 2.0 K, 3.0 Ca, 1.0 Mg, 100 Dextrose (G2301) 180nre Optiflux Hemodialysis-CV Catheter-Tunneled, Chest, Left Jugular Access Placed on August 07, 2023 Heparin Sodium (Porcine) 1,000 Units/mL Catheter Lock Arterial; 2000units,Arterial Red Port Heparin Sodium (Porcine) 1,000 Units/mL Catheter Lock Venous; 2100units,Venous Blue Port Blood Pressure-sitting 142/69 mmHg Blood Pressure-sit ting 139/71 mmHg Heart Rate 67 beats per minute Blood Pressure-standi ng 136/68 mmHg Respiratory Rate 18 breaths per minute Heart Rate 65 beats per minute Temperature 96.2 deg. F Respiratory Rate 18 breaths per minute - - Temperature 97.0 deg. F
--- OUTSIDE RECORDS SUMMARY | 2024-03-29 06:07 | XMS_ITS | Data Portability ---
Author Organization JUAN REILLYKaitlynn Enrique Address [address] [place] [address] Assessment No assessment recorded. Plan of Treatment Reminders Order Date Submit Date Provider Last Modified By Organization Details Last Modified Time Details Appointments None recorded. Lab CMP, serum or plasma 2020 021 [facility], [address], [address], [place], [address], 12:38:09 HbA1c (hemoglobin A1c), blood 2020 021 [facility], [facility] [facility], [address], [place], [address], 12:37:53 lipid panel, serum 2020 021 [facility], [address] [place], [place] [address] [address], [address], [place], [address], 12:38:09 microalbumi n, urine 2020 021 [facility], [address], [address], [place], [address], 12:38:08 CBC 2020 021 [facility], [address], [address], [place], [address], 12/08/202 1 12:38:25 PSA, total, serum or plasma 2021 022 [facility], [address], [address], [place], [address], 2 15:32:48 HbA1c (hemoglobin A1c), blood 2021 022 [facility], [address], [address], [place], [address], 2 15:32:48 CMP, serum or plasma 2021 022 [facility], [address], [address], [place], [address], 2 15:32:48 microalbumi n, urine 2021 022 [facility], [address], [address], [place], [address], 2 15:32:48 lipid panel, serum 2021 022 [facility], [address], [address], [place], [address], 2 15:32:47 CBC 2023 024 [facility], [address], [address], [place], [address], 4 06:19:59 CMP, serum or plasma 2023 024 [facility], [address], [address], [place], [address], 4 06:19:58 HbA1c (hemoglobin A1c), blood 2023 024 [facility], [address] [facility], [address], [place], [address], 4 09:17:01 lipid panel, serum 2023 024 [facility], [address] [place] [address], [address], [place], [address], 4 06:19:57 lipid panel, serum 2023 024 [facility], [address] [facility], [address], [place], [address], 4 09:16:58 Referral None recorded. Procedures None recorded. Surgeries None recorded. Imaging None recorded. Medication Orders Humalog Mix 75-25 (U-100) Insulin 100 unit/[facility] suspension [address] [id number], [address], [place], [place], [id number], 4 16:53:22 lisinopril 20 mg tablet 2021 022 [facility]52195, [address], [id number], 2 15:32:48 Humalog KwikPen (U-100) Insulin 100 unit/mL subcutaneou s 2023 024 [facility] #53951, [address], [place], [place], [id number], 4 16:57:55 Basaglar KwikPen U-100 Insulin 100 unit/mL (3 mL) subcutaneou s 2023 024 [facility] #24876, [address], [place], [place], [id number], 4 16:57:56 trazodone 50 mg tablet 2023 024 [facility] #00004, [address], [place], [place], [id number], 4 09:14:01 sevelamer carbonate 800 mg tablet 2023 024 [facility] #62391, [address], [place], [place], [id number], 4 09:14:00 Metamucil 3.4 gram/5.4 gram oral powder 2023 024 [facility]36310, [address] , [place], [place], [id number], 4 09:03:09 ursodiol 300 mg capsule 2023 024 [facility] #08817, [address] [place], [place], [id number], 4 09:14:00 cholecalcif frank (vitamin D3) 125 mcg (5,000 unit) capsule 2023 024 [facility]27412, [address] , [place], [place], [id number], 4 09:03:08 calcium 500 mg (as calcium carbonate 1,250 mg) chewable tablet 2023 024 [facility] #45903, [address] [place], [place], [id number], 4 09:03:09 sodium bicarbonate 650 mg tablet 2023 024 [facility] #22570, [address] [facility] [place], [id number], 4 09:13:59 amlodipine 10 mg tablet 2023 024 [facility] #16987, [address], [place], [place], [id number], 4 09:03:11 carvedilol 12.5 mg tablet 2023 024 [facility] #21976, [address], [place], [place], [id number], 4 09:03:13 hydralazine 25 mg tablet 2023 024 [facility] #55860, [address], [place], [place], [id number], 4 09:03:12 aspirin 81 mg chewable tablet 2023 024 [facility] #77796, [address], [place], [place], [id number], 4 09:03:08 atorvastati n 40 mg tablet 2023 024 [facility] #50973, [address], [place], [place], [id number], 4 09:03:11 Patient TargetsNo targets recorded. Patient Instructions Encounter Date Encounter Id Patient Instructions Last Modified By Organization Details Last Modified Time 10/24/2019 [id number] learning about high blood pressure [facility] Not available 10/24/2019 13:06:28 12/01/2021 [id number] learning about type 2 diabetes [email or web address] Not available 12/01/2021 15:32:40 type 2 diabetes: care instructions [email or web address] Not available 12/01/2021 15:32:40 learning about high blood pressure [email or web address] Not available 12/01/2021 15:32:40 03/22/2023 [id number] learning about type 2 diabetes [email or web address] Not available 03/22/2023 16:57:50 type 2 diabetes: care instructions Not available 03/22/2023 16:57:50 learning about high blood pressure [email or web address] Not available 03/22/2023 16:57:49 02/14/2024 [id number] insomnia: care instructions [email or web address] Not available 02/15/2024 09:13:54 learning about type 2 diabetes [email or web address] Not available 02/15/2024 09:03:03 type 2 diabetes: care instructions [email or web address] Not available 02/15/2024 09:03:03 hyperphosphatemi a: care instructions [email or web address] Not available 02/15/2024 09:13:54 constipation: ca re instructions [email or web address] Not available 02/15/2024 09:03:03 learning about acute cholecystitis [email or web address] Not available 02/15/2024 09:13:54 end-stage renal disease: care instructions [email or web address] Not available 02/15/2024 09:03:03 learning about high blood pressure Not available 02/15/2024 09:03:03 Reason for Referral None Reported. Results Created Date Observation Date Name Description Value Unit Range Abnormal Flag Note LastModifiedBy Organization Detail LastModifiedTime 03/22/1903/22/2023 LIPID PANEL cholesterol, total 140 mg/dL 100-19 9 Not Available [facility] [address] [place], [address], 03/23/2023 06:19:57 03/22/1903/22/2023 LIPID PANEL triglyceride s 110 mg/dL 0-149 Not Available [facility] [address] [place], [address], 03/23/2023 06:19:57 03/22/1903/22/2023 LIPID PANEL HDL cholesterol 47 mg/dL 40-999 Not Available [facility] [address] [place], [address], 03/23/2023 06:19:57 03/22/19 24 03/22/2023 LIPID PANEL VLDL cholesterol corey 22 mg/dL 5-40 Not Available [address], [address], 03/23/2023 06:19:57 03/22/19 24 03/22/2023 LIPID PANEL LDL chol calc ([facility]) 86 mg/dL 0-99 Not Available [address], [address], 03/23/2023 06:19:57 03/22/19 24 03/22/2023 COMP. METAB OLIC PANEL (14) glucose 113 mg/dL 70-99 above high normal Not Available [address], [address], 03/23/2023 06:19:58 03/22/19 24 03/22/2023 COMP. METAB OLIC PANEL (14) BUN 12 mg/dL 6-24 Not Available [facility] [address], [address], 03/23/2023 06:19:58 03/22/19 24 03/22/2023 COMP. METAB OLIC PANEL (14) creatinine 3.81 mg/dL 0.76-1 .27 panic high RESUL TS VERIF IED AND PALACIO D TO DR EMERSON DU BY Freddy castillo, CPT AT 2223 ON 03/22. Not Available [address], [address], 03/23/2023 06:19:58 03/22/19 24 03/22/2023 COMP. METAB OLIC PANEL (14) eGFR 18 >=60 below low normal Units for eGFR value s are mL/mi n/1.7 3 The eGFR Calcu latio n has not been valid ated for patie nts under the age of 18. If test resul ts are displ ayed for a patie nt under the age of 18, disre gris that value . Not Available [address], [address], 03/23/2023 06:19:58 03/22/19 24 03/22/2023 COMP. METAB OLIC PANEL (14) BUN/creatini ne ratio 3 9-20 below low normal Not Available [address], [address], 03/23/2023 06:19:58 03/22/19 24 03/22/2023 COMP. METAB OLIC PANEL (14) sodium 139 mmol/ L 134-14 4 Not Available [address], [address], 03/23/2023 06:19:58 03/22/19 24 03/22/2023 COMP. METAB OLIC PANEL (14) potassium 3.7 mmol/ L 3.5-5. 2 Not Available [address], [address], 03/23/2023 06:19:58 03/22/19 24 03/22/2023 COMP. METAB OLIC PANEL (14) chloride 95 mmol/ L 96-106 below low normal Not Available [address], [address], 03/23/2023 06:19:58 03/22/19 24 03/22/2023 COMP. METAB OLIC PANEL (14) carbon dioxide, total 32 mmol/ L 20-29 above high normal Not Available [address], [address], 03/23/2023 06:19:58 03/22/19 24 03/22/2023 COMP. METAB OLIC PANEL (14) calcium 8.7 mg/dL 8.7-10 .2 Not Available [address], [address], 03/23/2023 06:19:58 03/22/19 24 03/22/2023 COMP. METAB OLIC PANEL (14) protein, total 7.7 g/dL 6.0-8. 5 Not Available [address], [address], 03/23/2023 06:19:58 03/22/19 24 03/22/2023 COMP. METAB OLIC PANEL (14) albumin 4.2 g/dL 3.8-4. 9 Not Available [address], [address], 03/23/2023 06:19:58 03/22/19 24 03/22/2023 COMP. METAB OLIC PANEL (14) globulin, total 3.5 g/dL 1.5-4. 5 Not Available [address], [address], 03/23/2023 06:19:58 03/22/19 24 03/22/2023 COMP. METAB OLIC PANEL (14) A/G ratio 1.2 1.2-2. 2 Not Available [address], [address], 03/23/2023 06:19:58 03/22/19 24 03/22/2023 COMP. METAB OLIC PANEL (14) bilirubin, total 0.9 mg/dL 0.0-1. 2 Not Available [address], [address], 03/23/2023 06:19:58 03/22/19 24 03/22/2023 COMP. METAB OLIC PANEL (14) alkaline phosphatase 88 IU/L 44-121 Not Available [address], [address], 03/23/2023 06:19:58 03/22/19 24 03/22/2023 COMP. METAB OLIC PANEL (14) AST (SGOT) 26 IU/L 0-40 Not Available [address], [address], 03/23/2023 06:19:58 03/22/19 24 03/22/2023 COMP. METAB OLIC PANEL (14) ALT (SGPT) 11 IU/L 0-44 Not Available [address], [address], 03/23/2023 06:19:58 03/22/1903/22/2023 CBC, PLATE LET, NO DIFFE RENTI AL WBC 8.8 x10e3 /uL 3.4-10 .8 Not Available [address], [address], 03/23/2023 06:19:59 03/22/19 24 03/22/2023 CBC, PLATE LET, NO DIFFE RENTI AL RBC 3.25 x10e6 /uL 4.14-5 .80 below low normal Not Available [address], [address], 03/23/2023 06:19:59 03/22/19 24 03/22/2023 CBC, PLATE LET, NO DIFFE RENTI AL hemoglobin 10.5 g/dL 13.0-1 7.7 below low normal Not Available [address], [address], 03/23/2023 06:19:59 03/22/1903/22/2023 CBC, PLATE LET, NO DIFFE RENTI AL hematocrit 32.0 % 37.5-5 1.0 below low normal Not Available [address], [address], 03/23/2023 06:19:59 01/17/03/22/2023 CBC, PLATE LET, NO DIFFE RENTI AL MCV 99 fL 79-97 above high normal Not Available [address], [address], 03/23/2023 06:19:59 03/22/19 24 03/22/2023 CBC, PLATE LET, NO DIFFE RENTI AL MCH 32.3 pg 26.6-3 3.0 Not Available [address], [address], 03/23/2023 06:19:59 03/22/1903/22/2023 CBC, PLATE LET, NO DIFFE RENTI AL MCHC 32.8 g/dL 31.5-3 5.7 Not Available [address], [address], 03/23/2023 06:19:59 03/22/1903/22/2023 CBC, PLATE LET, NO DIFFE RENTI AL RDW 14.4 % 11.5-1 4.5 Not Available [address], [address], 03/23/2023 06:19:59 03/22/1903/22/2023 CBC, PLATE LET, NO DIFFE RENTI AL platelets 55 x10e3 /uL 150-45 0 below low normal Not Available [address], [address], 03/23/2023 06:19:59 03/22/1903/22/2023 CBC, PLATE LET, NO DIFFE RENTI AL NRBC 0 % 0-0 Not Available [address], [address], 03/23/2023 06:19:59 03/22/1903/23/2023 LIPID PROFI LE cholesterol, total 140 mg/dL 100-19 9 Not Available [facility] & [address], [address], 03/23/2023 09:16:58 03/22/1903/23/2023 LIPID PROFI LE triglyceride s 109 mg/dL 0-149 Not Available [address], [address], 03/23/2023 09:16:58 03/22/19 24 03/23/2023 LIPID PROFI LE HDL cholesterol 45 mg/dL >39 Not Available [facility] & [address], [address], 03/23/2023 09:16:58 03/22/19 24 03/23/2023 LIPID PROFI LE VLDL cholesterol corey 20 mg/dL 5-40 Not Available [address], [address], 03/23/2023 09:16:58 03/22/1903/23/2023 LIPID PROFI LE LDL chol calc ([facility]) 75 mg/dL 0-99 Not Available [address], [address], 03/23/2023 09:16:58 03/22/1903/23/2023 HEMOG LOBIN A1C hemoglobin A1C 6.6 % 4.8-5. 6 above high normal Predi abete s: 5.7 - 6.4 Diabe jesus: >6.4 Glyce akshat contr ol for adult s with diabe jesus: <7.0 Not Available [address], [address], 03/23/2023 09:17:01 03/22/1903/23/2023 DIABE JESUS PATIE NT EDUCA TION pdf Not applic able Not Available [facility] & [address], [address], 03/23/2023 09:16:58 03/22/19 24 03/23/2023 DIABE JESUS PATIE NT EDUCA TION pdf .* Not Available [facility] [address] [place], [address], 03/23/2023 09:16:39 03/22/19 24 03/23/2023 DIABE JESUS PATIE NT EDUCA TION pdf . Not Available [facility] [address] [place], [address], 03/23/2023 06:19:58 Result Notes None recorded. Problems Name Problem SNOMED Code Status Onset Date Resolution Date Notes Provider Name and Address Organization Details Recorded Time Type 2 diabetes mellitus 64039188 Active 2018 Michael Flores PA-C Attn: Khadijah aguilar,[address] [facility], [place], [address], [facility] 9 15:35:36 Coronary arterioscleros is 40840800 Active 2018 Michael Flores PA-C Attn: Khadijah g,[address] [facility], [place], [address], [facility] 9 15:46:47 Essential hypertension 80416458 Active 2018 Michael Flores PA-C Attn: Khadijah g,[address] [facility], [place], [address], [facility] 9 15:47:37 Disorder of skin 04089501 Active 2020 Addy Farmer MD Attn: Accountin g,[address] [facility], [place], [address], [facility] 1 12:31:26 History of placement of stent for coronary artery disease 997080264 Active 2021 Ant Connie Farmer MD Attn: Accountin g,[address] [facility], [place], [address], [facility] 2 15:17:54 History of myocardial infarction 073929156 Active 2021 2018 Addy Farmer MD Attn: Khadijah aguilar,[address] [facility], [place], [address], [place] [facility] 2 15:18:25 Screening for malignant neoplasm of prostate Active 2021 Addy Farmer MD Attn: Khadijah aguilar,[address] [facility], [place], [address], [place] [facility] 2 15:32:04 End-stage renal disease 10419456 Active 2023 Addy Farmer MD Attn: Khadijah aguilar,[address] [facility] [facility], [place], [address], [place] [facility] 4 07:42:52 Vitamin D deficiency 19619726 Active 2023 Addy Farmer MD Attn: Davidmarti aguilar,[address] [facility], [place], [address], [place] [facility] 4 07:51:48 Constipation 63743968 Active 2023 Addy Farmer MD Attn: Khadijah aguilar,[address] [facility], [place], [address], [place] [facility] 4 07:56:08 Hyperphosphate matt 81183832 Active 2023 Addy Farmer MD Attn: Davidmarti aguilar,[address] [facility] [facility], [place], [address], [place] [facility] 4 09:04:42 Cholecystitis 51394958 Active 2023 Addy Farmer MD Attn: Davidmarti aguilar,[address] [facility] [facility], [place], [address], [place] [facility] 4 09:10:54 Insomnia 650440395 Active 2023 Addy Farmer MD Attn: Davidmarti aguilar,[address] [facility], [place], [address], [place] [facility] 4 09:12:43 Diabetes mellitus 03748994 Active 2015 Addy Farmer MD Attn: Khadijah aguilar,[address], [place], [address], [facility] 6 12:10:51 Dry skin 53964390 Active 2015 Addy Farmer MD Attn: Khadijah aguilar,[address], [place], [address], [facility] 6 12:11:23 Problem Notes None recorded. Medical Equipment None Reported. Allergies No known drug allergies Medications Name Sig Start Date Stop Date Status Note LastModified by Organization Details LastModified Time latanoprost 0.005 % eye drops INSTILL 1 DROP IN BOTH EYES AT BEDTIME active Not Available Not Available No t Available Humalog Mix 75-25 (U-100) Insulin 100 unit/mL subcutaneou s suspension ADMINISTE R 32 UNITS UNDER THE SKIN TWICE DAILY 03/22 completed Not Available Not Available Not Available atorvastati n 40 mg tablet Take 1 tablet every day by oral route in the evening. 2023 active Not Available Not Available Not Avai lable metformin 500 mg tablet TAKE 2 TABLET BY MOUTH TWICE DAILY 02/10 completed Not Available Not Available Not Available BD Alcohol Swabs APPLY 1 PAD EVERY DAY 02/10 completed Not Available Not Available Not Available carvedilol 25 mg tablet TAKE 1 TABLET BY MOUTH TWICE DAILY WITH THE MORNING AND EVENING MEAL active Not Available Not Available No t Available carvedilol 6.25 mg tablet TAKE 1 TABLET BY MOUTH TWICE DAILY active Not Available Not Available No t Available atorvastati n 20 mg tablet TAKE 1 TABLET BY MOUTH DAILY 12/01 completed Not Available Not Available Not Available carvedilol 12.5 mg tablet Take 1 tablet twice a day by oral route. 2023 active Not Available Not Available Not Avai lable trazodone 50 mg tablet Take 1 tablet every day by oral route at bedtime. 2023 active Not Available Not Available Not Avai lable ofloxacin 0.3 % eye drops 02/10 completed Not Available Not Available Not Available metoprolol succinate ER 50 mg tablet,exte nded release 24 hr TAKE 1 TABLET BY MOUTH EVERY DAY IN THE MORNING 12/01 completed Not Available Not Available Not Available lisinopril 20 mg tablet TAKE 1 TABLET BY MOUTH DAILY active Not Available Not Available No t Available metformin 850 mg tablet 02/10 completed Not Available Not Available Not Available Lantus U-100 Insulin 100 unit/mL subcutaneou s solution ADMINISTE R 12 UNITS UNDER THE SKIN EVERY DAY AT BEDTIME 02/10 completed Not Available Not Available Not Available hydralazine 25 mg tablet Take 1 tablet every 6 hours by oral route. 2023 active Not Available Not Available Not Avai lable clopidogrel 75 mg tablet TAKE 1 TABLET BY MOUTH EVERY DAY active Not Available Not Available No t Available amlodipine 5 mg tablet TAKE 1 TABLET BY MOUTH DAILY 02/13 completed Not Available Not Available Not Available sulfamethox azole 800 mg-trimetho prim 160 mg tablet 05/23 completed Not Available Not Available Not Available aspirin 81 mg tablet,wesly yed release Take 1 tablet every day by oral route. 02/13 completed Not Available Not Available Not Available triamcinolo ne acetonide 0.1 % topical cream apply topically TWICE DAILY NEEDED FOR inflamati on active Not Available Not Available No t Available ketorolac 0.5 % eye drops INSTILL 1 DROP IN BOTH EYES TWICE DAILY 12/01 completed Not Available Not Available Not Available clonidine HCl 0.2 mg tablet TAKE 1 TABLET BY MOUTH TWICE DAILY active Not Available Not Available No t Available prednisolon e acetate 1 % eye drops,suspe nsion SHAKE LIQUID AND INSTILL 1 DROP IN BOTH EYES THREE TIMES DAILY FOR 2 WEEKS active Not Available Not Available No t Available calcium 500 mg (as calcium carbonate 1,250 mg) tablet TAKE 1 Tablet BY MOUTH TWICE DAILY active Not Available Not Available No t Available triamcinolo ne acetonide 0.025 % topical cream APPLY A THIN LAYER TO THE AFFECTED AREA(S) BY TOPICAL ROUTE 2 TIMES PER DAY 11/19 completed Not Available Not Available Not Available sodium bicarbonate 650 mg tablet Take 2 tablets twice a day by oral route. 2023 active Not Available Not Available Not Avai lable amlodipine 10 mg tablet Take 1 tablet every day by oral route. 2023 active Not Available Not Available Not Avai lable cephalexin 500 mg capsule TAKE 1 CAPSULE BY MOUTH TWICE DAILY 12/01 completed Not Available Not Available Not Available pantoprazol e 40 mg tablet,wesly yed release TAKE 1 Tablet BY MOUTH TWICE DAILY BEFORE MEALS active Not Available Not Available No t Available lisinopril 10 mg tablet 05/03 completed Not Available Not Available Not Available ursodiol 300 mg capsule Take 1 capsule twice a day by oral route. 2023 active Not Available Not Available Not Avai lable Humulin 70/30 U-100 Insulin 100 unit/mL subcutaneou s suspension 02/10 completed Not Available Not Available Not Available aspirin 81 mg chewable tablet Chew 1 tablet every day by oral route. 2023 active Not Available Not Available Not Avai lable insulin syringe U-100 with needle 0.3 mL 31 gauge x 16 02/10 completed Not Available Not Available Not Available hydroxyzine HCl 25 mg tablet TAKE 1 TABLET BY MOUTH EVERY 6 TO 8 HOURS NEEDED FOR ITCHING 12/01 completed Not Available Not Available Not Available calcium 500 mg (as calcium carbonate 1,250 mg) chewable tablet Take 1 tablet twice a day by oral route. 2023 active Not Available Not Available Not Avai lable hydralazine 50 mg tablet 02/13 completed Not Available Not Available Not Available sertraline 50 mg tablet TAKE 1/2 TABLET EVERY NIGHT AT BEDTIME active Not Available Not Available No t Available isosorbide dinitrate 5 mg tablet TAKE 1 TABLET BY MOUTH THREE TIMES DAILY active Not Available Not Available No t Available cholecalcif frank (vitamin D3) 125 mcg (5,000 unit) capsule Take 1 capsule every day by oral route. 2023 active Not Available Not Available Not Avai lable insulin lispro (U-100) 100 unit/mL subcutaneou s pen INJECT 12 UNITS UNDER THE SKIN THREE TIMES DAILY active Not Available Not Available No t Available escitalopra m 10 mg tablet TAKE 1 TABLET BY MOUTH EVERY DAY active Not Available Not Available No t Available metoprolol tartrate 25 mg tablet 02/10 completed Not Available Not Available Not Available Januvia 100 mg tablet TAKE 1 TABLET BY MOUTH EVERY MORNING 02/10 completed Not Available Not Available Not Available sevelamer carbonate 800 mg tablet Take 1 tablet 3 times a day by oral route with meal(s). active Not Available Not Available No t Available OneTouch Verio test strips USE DIRECTED TO TEST UP TO FOUR TIMES DAILY active Not Available Not Available No t Available Entresto 97 mg-103 mg tablet TAKE 1 TABLET BY MOUTH TWICE DAILY active Not Available Not Available No t Available Entresto 49 mg-51 mg tablet TAKE 1 TABLET BY MOUTH TWICE DAILY active Not Available Not Available No t Available Metamucil 3.4 gram/5.4 gram oral powder 1.7gms daily 2023 active Not Available Not Available Not Avai lable OneTouch Verio Flex Meter active Not Available Not Available Not Available Basaglar KwikPen U-100 Insulin 100 unit/mL (3 mL) subcutaneou s ADMINISTE R 12 UNITS UNDER THE SKIN EVERY DAY AT BEDTIME active Not Available Not Available No t Available TRUEplus Pen Needle 31 gauge x 5/16 USE FOUR TIMES DAILY WITH INSULIN active Not Available Not Available No t Available TRUEplus Pen Needle 32 gauge x 5/32 active Not Available Not Available Not Available Dexcom G6 Transmitter device active Not Available Not Available Not Available OneTouch Delica Plus Lancet 33 gauge USE DIRECTED UP TO 4 TIMES DAILY 12/01 completed Not Available Not Available Not Available OneTouch Delica Plus Lancet 30 gauge active Not Available Not Available Not Available Dexcom G7 Sensor device active Not Available Not Available Not Available Vitals Date Recorded Body height Provider Name an d Address Organization Details Last Updated DateTime 02/10/2021 157.48 cm Mireya Han MA [facility] 12:09:45 Date Recorded Body mass index (BMI) Body weight Provider Name and Address Organization Details Last Updated DateTime 02/10/2021 21.2 kg/m2 96533.71 g Mireya Han MA [facility] 1 04/13/2020 12:17:08 Date Recorded Heart rate Provider Name an d Address Organization Details Last Updated DateTime 02/10/2021 79 /min Mireya Han MA [facility] 12:17:22 Date Recorded Body temperature Provider Name a nd Address Organization Details Last Updated DateTime 02/10/2021 97.9 [degF] Mireya Han [facility] 02/11/20 21 12:17:26 Date Recorded Oxygen saturation Oxygen saturation in Arterial blood by Pulse oximetry Provider Name and Address Organization Details Last Updated DateTime 02/10/2021 98 % 98 % Mireya Han [place] [facility] 02/10/2021 12:17:30 Date Recorded Body height Provider Name an d Address Organization Details Last Updated DateTime 12/01/2021 157.48 cm Mireya Han [place] [facility] 2 14:26:44 Date Recorded Body mass index (BMI) Body weight Provider Name and Address Organization Details Last Updated DateTime 12/01/2021 22.7 kg/m2 02919.45 g Mireya Han [place] [facility] 0 12/01/2021 14:48:12 Date Recorded Body temperature Provider Name a nd Address Organization Details Last Updated DateTime 12/01/2021 98 [degF] Mireya Han [place] [facility] 2 14:48:14 Date Recorded Heart rate Provider Name an d Address Organization Details Last Updated DateTime 12/01/2021 95 /min Mireya Han [place] [facility] 2 14:48:25 Date Recorded Oxygen saturation Oxygen saturation in Arterial blood by Pulse oximetry Provider Name and Address Organization Details Last Updated DateTime 12/01/2021 99 % 99 % Mireya Han [place] [facility] 12/01/2021 14:48:28 Date Recorded Body height Provider Name an d Address Organization Details Last Updated DateTime 03/22/2023 157.48 cm Miryea Han [place] [facility] 16:17:47 Date Recorded Body mass index (BMI) Body weight Provider Name and Address Organization Details Last Updated DateTime 03/22/2023 23.4 kg/m2 26473.82 g Mireya Han [place] [facility] 03/22/2023 16:22:40 Date Recorded Heart rate Provider Name an d Address Organization Details Last Updated DateTime 03/22/2023 76 /min Mireya Han [place] [facility] 4 16:22:44 Date Recorded Body temperature Provider Name a nd Address Organization Details Last Updated DateTime 03/22/2023 98 [degF] Mireya Han [place] [facility] 4 16:22:47 Date Recorded Oxygen saturation Oxygen saturation in Arterial blood by Pulse oximetry Provider Name and Address Organization Details Last Updated DateTime 03/22/2023 99 % 99 % Mireya Han [facility] 03/22/2023 16:22:49 Date Recorded Body height Provider Name an d Address Organization Details Last Updated DateTime 02/14/2024 157.48 cm Edie Flores [place] [facility] 02/14/2024 17:35:48 Date Recorded Body mass index (BMI) Body weight Provider Name and Address Organization Details Last Updated DateTime 02/14/2024 20.7 kg/m2 69166.23 g Edie Flores [facility] 02/14/2024 17:35:57 Date Recorded Heart rate Provider Name an d Address Organization Details Last Updated DateTime 02/14/2024 69 /min Edie Flores [facility] 02/03 17:42:54 Date Recorded Oxygen saturation Oxygen saturation in Arterial blood by Pulse oximetry Provider Name and Address Organization Details Last Updated DateTime 02/14/2024 97 % 97 % Edie Flores [facility] 02/14/2024 17:42:56 Date Recorded Systolic blood pressure Diastolic blood pressure Provider Name and Address Organization Details Last Updated DateTime 02/10/2021 126 mm[Hg] 74 mm[Hg] Mireya Han [facility] 02/10/2021 12:17:17 Date Recorded Systolic blood pressure Diastolic blood pressure Provider Name and Address Organization Details Last Updated DateTime 12/01/2021 124 mm[Hg] 80 mm[Hg] Mireya Han [facility] 12/01/2021 14:49:54 Date Recorded Systolic blood pressure Diastolic blood pressure Provider Name and Address Organization Details Last Updated DateTime 03/22/2023 132 mm[Hg] 82 mm[Hg] Mireya Han [facility] 03/22/2023 16:22:42 Date Recorded Systolic blood pressure Diastolic blood pressure Provider Name and Address Organization Details Last Updated DateTime 02/14/2024 160 mm[Hg] 69 mm[Hg] Edie Flores [facility] 02/14/2024 17:42:24 Social History Question Answer Notes LastModified by Organizat ion Details LastModified Time Tobacco Smoking Status Never Smoker Darlin ZACK Cotto [facility], [place] - [facility] 02/10/2016 11:34:37 Do You Have An Advance Directive? Yes Information not available 02/10/2016 What Is Your Level Of Caffeine Consumption? Moderate Information not available 02/10/2016 What Type Of Diet Are You Following? REGULAR Information not available 02/10/2016 Education 12 Information no t available 02/10/2016 Are There Any Guns Present In Your Home? No Information not available 02/10/2016 Hard Of Hearing Or Deaf In One Or Both Ears? No Information not available 02/10/2016 Legally Blind In One Or Both Eyes? No Information no t available 02/10/2016 Marital Status Informatio n not available 02/10/2016 What Was The Date Of Your Most Recent Tobacco Screening? 02/14/2024 Information not available 02/14/2024 Performs Monthly Self-breast Exam? No Information no t available 02/10/2016 Seat Belts Used Routinely Yes Information not available 02/10/2016 Smoke Alarm In Home Yes Information not available 02/10/2016 Do You Have Smoke And Carbon Monoxide Detectors In Your Home? No Information not available 02/14/2024 General Stress Level Low Information not available 02/10/2016 Do You Use Any Illicit Or Recreational Drugs? No Information not available 02/14/2024 Do You Use Sunscreen Routinely? No Information not available 02/10/2016 Has Tobacco Cessation Counseling Been Provided? No Information not available 03/22/2023 Do You Or Have You Ever Used Any Other Forms Of Tobacco Or Nicotine? No Information not available 03/22/2023 Sex: Unknown Functional Status Question Answer Note LastModified by Organizat ion Details LastModified Time What is your exercise level? Occasional Information not available 02/10/2016 Mental Status None recorded. Family History Nothing Reported. Medical History Condition Response Coronary Artery Disease N Atrial Fibrillation N High Blood Pressure N Kidney or Bladder Problems N Thyroid Problems N GI Problems N Depression N COPD N Blood Clots N Skin Problems N Anemia N Heart Attack (MD) N Anxiety Disorder N Diabetes Y Muscle, Joint, or Bone Problems N Acid Reflux (GERD) N Cancer N Stroke N Asthma N Allergies N High Cholesterol N Hepatitis N Liver Disease N Headaches Y Heart Failure N Osteoporosis N Past Encounters Encounter ID Performer Location Encounter Start Date Encounter Closed Date Diagnosis/Indication Diagnosis SNOMED-CT Code Diagnosis ICD10 Code Diagnosis Note [id number] MD John Rogel (Adult Med) [address] [place] [address] [phone] 0 02/10/2016 10:50:18 02/10/2016 18:07:35 Diabetes mellitus 59362570 E11.9 Dry skin 07995428 L85.3 [id number] RICHARD Mcconnell (Adult Med) [address] [place] [address] [phone] 0 11/19/2018 14:31:58 11/20/2018 09:38:54 Type 2 diabetes mellitus 22702410 E11.9 Coronary arteriosclerosis 43975177 I25.10 Essential hypertension 65671644 I10 [id number] ZACK Lopez (Adult Med) [address] [place] [address] [phone] 0 12/17/2018 11:15:45 12/17/2018 12:26:48 [id number] RICHARD Mcconnell (Adult Med) [address] [place] [address] 0 12/17/2018 12:28:10 12/18/2018 13:37:59 Essential hypertension 32217044 I10 Coronary arteriosclerosis 94447467 I25.10 Type 2 dora betes mellitus 55542711 E11.9 [id number] RICHARD Mcconnell (Adult Med) [address] [place] [address] [phone] 0 05/24/2019 16:44:11 05/27/2019 08:45:45 Type 2 diabetes mellitus 65397667 E11.9 Essential hypertension 33885758 I10 [id number] RICHARD Mcconnell (Adult Med) [address] [place] [address] [id number] 0 06/25/2019 09:41:45 06/25/2019 12:35:36 Essential hypertension 44503772 I10 Type 2 dora betes mellitus 10487425 E11.9 Coronary arteriosclerosis 44373231 I25.10 [id number] MD John Rogel (Adult Med) [address] [place] [address] [phone] 0 08/01/2019 15:15:05 08/02/2019 09:54:12 Essential hypertension 19509959 I10 Coronary arteriosclerosis 68284804 I25.10 Type 2 dora betes mellitus 67190559 E11.9 Cont current rx [id number] MD John Boston (Adult Med) [address] [place] [address] [id number] 0 10/24/2019 08:03:57 10/28/2019 18:24:51 Coronary arteriosclerosis 43560054 I25.10 Has one stent put in 2019 , under the care of his cardiologi st Dr. Damien Slater. Diabetes mellitus 847698 09 E11.65 On insulin shots, last blood sugar this tm was around 156 mg%. To continue insulin shots and metformin and januvia. Essential hypertension 28168114 I10 Under the care of his cardiologi st. On metoprolol and lisinopril . Bilateral cataracts 9572 2003 H26.9 Will have left eye operation first, so far no contraindi cation for operation, usually takes about 15-20 minutes with sedative without general anesthesia . This office did advised him to temporally stop aspirin and clopidogre l for al least 3 days. Will coordinate with his ophthalmol ogist's office for this matter, if necessary will contact his cardiologi st office. 1130 AM 2009 left message for the coordinato r Ms. Clark of his ophthalmol ogist office. F/U with PCP. Dr. Farmer. [id number] MD John Rogel (Adult Med) [address] [place] [address] [id number] 0 02/10/2021 12:02:42 02/12/2021 07:39:13 Diabetes mellitus 77728678 E11.65 Essential hypertension 51392539 I10 Coronary arteriosclerosis 62330051 I25.10 [id number] MD John Rogel (Adult Med) [address] [place] [address] [id number] 0 12/01/2021 13:55:27 12/02/2021 12:13:37 Coronary arteriosclerosis 08545514 I25.10 History of myocardial infarction 207579954 I25.2 Essential hypertension 57389870 I10 Type 2 dora betes mellitus 71763075 E11.9 Cont current rx Screening for malignant neoplasm of prostate 384309087 Z12.5 [id number] MD John Rogel (Adult Med) [address] [place] [address] [phone] 0 03/22/2023 15:45:06 03/28/2023 15:08:49 Type 2 diabetes mellitus 17763520 E11.9 Cont current rx Essential hypertension 34124792 I10 Coronary arteriosclerosis 82412052 I25.10 [id number] Addy Farmer MD John [facility] (Adult Med) [address] [place] [address] [id number] 0 02/14/2024 17:06:43 02/15/2024 15:24:53 Coronary arteriosclerosis 23158438 I25.10 Essential hypertension 82258372 I10 Type 2 dora betes mellitus 59919367 E11.9 Cont current rx End-stage renal disease 86669228 N18.6 Vitamin D deficiency 347 43275 E55.9 Constipation 09995728 K5 9.00 Hyperphosphatemia 218106 01 E83.39 Cholecystitis 43070421 K 81.9 Insomnia 261189249 G47.0 0 Health Concerns Section Related Observation LastModified by Organization Detai ls LastModified Time None Recorded Concern Status LastModified by Organization Details LastModified Time None Recorded Advance Directives Directive Y: Payers Encounter Date Sequence Insurance Name Policy Number Policy Tomlinson Covered Member ID Tomlinson Member ID Guarantor Name 10/24/2019 1 [facility] PRIOR TO 09/03/2020 (MEDICAID REPLACEMENT - HMO) Domingo Guy [id number] Domingo Guy 02/10/2021 1 [facility] ON OR AFTER 09/03/20 (MEDICAID REPLACEMENT - HMO) Domingo Guy [id number] Domingo Guy 12/01/2021 1 [facility] ON OR AFTER 09/03/20 (MEDICAID REPLACEMENT - HMO) Domingo Guy [id number] Domingo Guy 03/22/2023 1 [facility] ON OR AFTER 09/03/20 (MEDICAID REPLACEMENT - HMO) Domingo Guy [id number] Domingo Guy 02/14/2024 1 [facility] ON OR AFTER 20 (MEDICAID REPLACEMENT - HMO) Domingo Guy [id number] Domingo Guy Notes Date Note Type Note Provider Name and Address Organization Details Recorded Time 10/24/2019 text/html This is phone vi sit, due to jordan virus pandemic, he understood and agreed, he is cantonese with some difficulty of language, he refereed his son as translater to communicating ,, , history of type 2 DM, coronary atherosclerosis with one stent, and hypertension, NKDA. lists of medications reviewed, also on aspirin, and clopidogrel among others, but no chest pain, no shortness of breathing, no syncope, no swollen feet, no palpitation, .He cant see well due to his cataracts., eye operation has been post poned due to jordan virus pandemic. Emerson Du MD Attn: Accounting,[address] [facility], [place], [address], [facility] 10/24/2019 13:07:11 02/10/2021 text/html No new complaints Addy Farmer MD Attn: Accounting,[address] [facility], [place], [address], [facility] 02/10/2021 12:38:51 12/01/2021 text/html Pt needs refills on his insulin. No new complaints. Requesting Free Style glucometer kit Addy Farmer MD Attn: Accounting,[address] [facility], [place], [address], [facility] 12/01/2021 15:34:11 03/22/2023 text/html Pt here with his son. Wants be reevaluated for his diabetes management. Apparentl using Humalog 12 U TID and lantus Solostar 12 U QHS Addy Farmer MD Attn: Accounting,[address] [facility], [place], [address], [facility] 03/22/2023 16:59:47 02/14/2024 text/html Here for hospita l f/u. Needs meds to be sent. Addy Farmer MD Attn: Accounting,[address] [facility], [place], [address], [place] [facility] 02/15/2024 09:14:21
== END 2024-03-29 02:39 | disposition short-term general hospital (02) ==
LOC: ANHED 17:44 → ANHIMU 20:56
PROVIDERS: Emergency Medicine; Nurse Practitioner; Admitting Provider Internal Medicine; Emergency Provider Emergency Medicine; Visit Provider Internal Medicine
DX: A41.9 Sepsis, unspecified organism (principal); R65.21 Severe sepsis with septic shock; J18.9 Pneumonia, unspecified organism; E87.6 Hypokalemia; R79.89 Other specified abnormal findings of blood chemistry; N18.6 End stage renal disease; Z99.2 Dependence on renal dialysis; D69.6 Thrombocytopenia, unspecified; J90 Pleural effusion, not elsewhere classified; R18.8 Other ascites; Z20.822 Contact with and (suspected) exposure to COVID-19; Z93.1 Gastrostomy status
CPT/HCPCS: 36415; 36600; 71045; 71250; 74176; 80053; 80069; 82805; 83605; 83735; 84145; 84484; 85018; 85025; 85027; 85055; 85380; 85384; 85610; 85730; 87040; 87637; 87641; 93005; 94640; 96365; 96366; 96367; 96375; 99285; A9270; G0378; G0379; J0692; J1265; J1644; J3370; J3480; J7030